=== PATIENT | female | born 1985 | race Caucasian/White ===

== ENCOUNTER 2016-10-10 01:36 | Inpatient (IN) | payer MEDICAID, SELFPAY ==
[2016-10-10] MEDS ORDERED: Sodium Chloride 0.9% 10 ML Syringe FLUSH PRN (02:14)
[2016-10-10] MEDS ORDERED: Nalbuphine 20 MG/1 ML Amp IVPUSH PRN (02:14)
[2016-10-10] MEDS ORDERED: Ondansetron 4 MG Tab.DIS PO PRN (02:14)
[2016-10-10] MEDS ORDERED: Oxytocin/Lactated Ringers 10 UNIT/1,000 ML BAG IV SCH ×2 (02:15→09:00)
[2016-10-10] MEDS: Lactated Ringers 1,000 ML IV SCH ×5 (03:24→10:33)
[2016-10-10] MEDS ORDERED: ePHEDrine 50 MG/ML SDV IVPUSH PRN (03:38)
[2016-10-10] MEDS ORDERED: diphenhydrAMINE 50 MG/ML SDV IVPUSH PRN (03:38)
[2016-10-10] MEDS ORDERED: fentaNYL 100 MCG/2 ML SDV EPIDUR PRN (03:38)
[2016-10-10] MEDS ORDERED: Bupivacaine/fentaNYL/NS 100 ML Bag EPIDUR SCH (03:45)
--- NOTE | 2016-10-10 04:26 | PCM.PREANE ---
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 (past history of migraines) Respiratory: Reports: no symptoms Cardiovascular: Reports: no symptoms GI: Reports: no symptoms Other: Reports: none - PHYSICAL ASSESSMENT O2 Sat by Pulse Oximetry: 98 RR: 18 Vital Signs: Last Vital Signs Temp 36.8 C 10/10/16 02:14 Pulse 91 10/10/16 02:14 Resp 18 10/10/16 02:14 BP 108/59 L 10/10/16 02:14 Pulse Ox 98 10/10/16 02:14 Height: 1.73 m Weight: 75.75 kg ASA Class: 2 Mental Status: alert & oriented x3 Airway Class: Mallampati = 2 Dentition: Reports: normal dentition Thyro-Mental Finger Breadths: 3 Mouth Opening Finger Breadths: 5 ROM/Head Extension: full Respiratory Status: lungs clear to auscultation bilaterally Cardiovascular Status: regular rate & rhythm, normal S1, S2, no murmur, blood pressure WNL - LAB Values: Laboratory Last Values WBC 12.65 K/mm3 (3.98-10.04) H 10/10/16 02:28 RBC 3.86 M/mm3 (3.98-5.22) L 10/10/16 02:28 Hgb 12.0 gm/L (11.2-15.7) 10/10/16 02:28 Hct 35.2 % (34.1-44.9) 10/10/16 02:28 MCV 91.2 fl (79.4-94.8) 10/10/16 02:28 MCH 31.1 pg (25.6-32.2) 10/10/16 02:28 MCHC 34.1 g/dl (32.2-35.5) 10/10/16 02:28 RDW Std Deviation 44.0 fL (36.4-46.3) 10/10/16 02:28 Plt Count 228 K/mm3 (182-369) 10/10/16 02:28 MPV 8.8 fl (9.4-12.3) L 10/10/16 02:28 Neut % (Auto) 78.2 % (34.0-71.1) H 10/10/16 02:28 Lymph % (Auto) 13.8 % (19.3-51.7) L 10/10/16 02:28 Cedar % (Auto) 6.7 % (4.7-12.5) 10/10/16 02:28 Eos % (Auto) 0.6 (0.7-5.8) L 10/10/16 02:28 Baso % (Auto) 0.1 % (0.1-1.2) 10/10/16 02:28 Neut # 9.91 K/mm3 (1.56-6.13) H 10/10/16 02:28 Lymph # 1.74 K/mm3 (1.18-3.74) 10/10/16 02:28 Cedar # 0.85 K/mm3 (0.24-0.36) H 10/10/16 02:28 Eos # 0.07 K/mm3 (0.04-0.36) 10/10/16 02:28 Baso # 0.01 K/mm3 (0.01-0.08) 10/10/16 02:28 Blood Type AB POSITIVE 10/10/16 02:28 Gel Antibody Screen Negative 10/10/16 02:28 - ALLERGIES Allergies/Adverse Reactions: Allergies Allergy/AdvReac Type Severity Reaction Status Date / Time Sulfa (Sulfonamide Allergy Joint Pain Verified 10/02/16 21:13 Antibiotics) - BLOOD Blood Available: Yes Product(s) Available: PRBC - ANESTHESIA PLAN Anesthesia Type Planned: epidural - ACKNOWLEDGEMENTS Pt an appropriate candidate for the planned anesthesia: Yes Alternatives and risks of anesthesia discussed w pt/guardian: Yes Pt/Guardian understands and agree with anesthesia plan: Yes PreAnesthesia Questionnaire Cardiovascular History: Reports: None Other Cardiovascular History: anemic Respiratory History: Reports: None Other Respiratory History: current smoker Gastrointestinal History: Reports: Cholelithiasis Genitourinary History: Reports: UTI, recurrent, Other (see below) Other Genitourinary History: Recurrent UTIs, kidney infections, possible stones - was directed to see urology after delivery per pt. 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 Musculoskeletal Surgical History: Reports: Other (see below) Other Musculoskeletal Surgeries/Procedures:: Left wrist, correction of "frayed tendons" - SUBSTANCE USE Smoking Status *Q: Current Every Day Smoker Tobacco Use Within Last Twelve Months: Cigarettes Second Hand Smoke Exposure: Yes Recreational Drug Use History: No - HOME MEDS Home Medications: Home Meds Pnv95/Iron Fum/Folic Acid [ Caplet] 1 each PO DAILY 03/26/16 [History] Acyclovir [Zovirax] 400 mg PO TID 10/02/16 [History] Ferrous Sulfate [Iron] 325 mg PO DAILY 10/02/16 [History] - CURRENT (IN HOUSE) MEDS Current Meds: Current Medications Diphenhydramine HCl (Benadryl) 25 mg IVPUSH Q6H PRN PRN Reason: pruritis Ephedrine Sulfate (Ephedrine Sulfate) 5 mg IVPUSH ASDIRECTED PRN PRN Reason: Hypotension Fentanyl (Sublimaze) 100 mcg EPIDUR Q3H PRN PRN Reason: Pain Last Admin: 10/10/16 04:19 Dose: 100 mcg Fentanyl/Bupivacaine HCl (Fentanyl/Bupivacaine/Ns 2 Mcg-0.125% 100 Ml) 100 ml EPIDUR ASDIRECTED [facility] Last Admin: 10/10/16 04:20 Dose: 100 ml Lactated Ringer's (Ringers, Lactated) 1,000 mls @ 100 mls/hr IV ASDIRECTED [facility] Last Admin: 10/10/16 03:25 Dose: 100 mls/hr Oxytocin/Lactated Ringer's (Pitocin In Lr 10 Units/1,000 Ml) 10 unit in 1,000 mls @ 500 mls/hr IV TITRATE [facility] PRN Reason: Protocol Nalbuphine HCl (Nubain) 10 mg IVPUSH Q2H PRN PRN Reason: Pain (moderate 4-6) Ondansetron HCl (Zofran Odt) 4 mg PO Q4H PRN PRN Reason: Nausea/Vomiting Sodium Chloride (Saline Flush) 10 ml FLUSH ASDIRECTED PRN PRN Reason: Keep Vein Open
--- NOTE | 2016-10-10 07:18 | PCM.LDHP ---
L&D History of Present Illness - General Date of Service: 10/10/16 Admit Problem/Dx: Patient Status Order with Admit Dx/Problem 10/10/16 02:15 Patient Status [ADT] Routine Patient Status: Refer to Observation Admission Diagnosis/Problem: Reason for Admit: labor Nurse Unit Type: Labor and Delivery Admitting Physician: Garrett Gonzalez Attending Physician: Garrett Gonzalez Admission Diagnosis/Problem Admission Diagnosis/Problem Source of Information: Patient History Limitations: Reports: No limitations - History of Present Illness Introduction:: Third 1-year-old, TALAT of 3 at 37+ weeks gestation, admitted in labor and delivery with contractions. Cervix 5 cm, dilated. Amniotomy performed at 07 level hours, clear fluid admit for labor and delivery. Group B strep negative history of genital herpes, taking Valtrex history of osteitis pubis Timing/Duration: Reports: minutes: Location, : Reports: Abdomen, Lower back Severity: moderate Pain Score: 8 Improves with: Reports: None Worsens with: Reports: None Associated Symptoms: Reports: N - Related Data Allergies/Adverse Reactions: Allergies Allergy/AdvReac Type Severity Reaction Status Date / Time Sulfa (Sulfonamide Allergy Joint Pain Verified 10/02/16 21:13 Antibiotics) Home Medications: Home Meds Pnv95/Iron Fum/Folic Acid [ Caplet] 1 each PO DAILY 03/26/16 [History] Acyclovir [Zovirax] 400 mg PO TID 10/02/16 [History] Ferrous Sulfate [Iron] 325 mg PO DAILY 10/02/16 [History] Past Medical History Cardiovascular History: Reports: None Other Cardiovascular History: anemic Respiratory History: Reports: None Other Respiratory History: current smoker Gastrointestinal History: Reports: Cholelithiasis Genitourinary History: Reports: UTI, recurrent, Other (see below) Other Genitourinary History: Recurrent UTIs, kidney infections, possible stones - was directed to see urology after delivery per pt. 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 Musculoskeletal Surgical History: Reports: Other (see below) Other Musculoskeletal Surgeries/Procedures:: Left wrist, correction of "frayed tendons" Social & Family History - Family History Family Medical History: Noncontributory - Tobacco Use Smoking Status *Q: Current Every Day Smoker Years of Tobacco use: 16 Packs/Tins Daily: 0.5 Used Tobacco, but Quit: No Second Hand Smoke Exposure: Yes - Caffeine Use Caffeine Use: Reports: None - Recreational Drug Use Recreational Drug Use: No H&P Review of Systems - Review of Systems: Review Of Systems: See Below General: Reports: no symptoms HEENT: Reports: no symptoms Pulmonary: Reports: no symptoms Cardiovascular: Reports: no symptoms Gastrointestinal: Reports: No symptoms Genitourinary: Reports: no symptoms Musculoskeletal: Reports: no symptoms Skin: Reports: no symptoms Psychiatric: Reports: no symptoms Neurological: Reports: no symptoms Hematologic/Lymphatic: Reports: no symptoms Immunologic: Reports: no symptoms L&D Exam - Exam Exam: See Below - Vital Signs Vital Signs: Last Vital Signs Temp 98.3 F 10/10/16 02:14 Pulse 91 10/10/16 02:14 Resp 18 10/10/16 04:29 BP 108/59 L 10/10/16 02:14 Pulse Ox 98 10/10/16 04:29 Weight: 167 lb - OB Specific Fundal Height in cm: 37 Contraction Intensity: Mild to Moderate movement: active heart tones: present heart tones per min: 135 Heart Rate (FHR) Variability: Moderate (6-25 bmp) Presentation: Vertex - Ventura Score Ventura Score Cervix Position: Posterior Ventura Score Consistency: Soft Ventura Score Effacement: 51-70% Ventura Score Dilation: > 5 cm Ventura Score Infant's Station: -1 ,0 Ventura Score Total: 9 - Exam General: alert, oriented HEENT: Mucosa moist & pink Neck: supple, trachea midline Lungs: Clear to auscultation, Normal respiratory effort Cardiovascular: regular rate, regular rhythm Abdomen: normal bowel sounds, soft Genitourinary: Normal external exam Extremities: normal inspection Skin: warm, dry, intact Psychiatric: alert, normal affect, normal mood - Patient Data Lab Results last 24 hrs: Laboratory Results - last 24 hr 10/10/16 10/10/16 Range/Units 02:28 02:28 WBC 12.65 H (3.98-10.04) K/mm3 RBC 3.86 L (3.98-5.22) M/mm3 Hgb 12.0 (11.2-15.7) gm/L Hct 35.2 (34.1-44.9) % MCV 91.2 (79.4-94.8) fl MCH 31.1 (25.6-32.2) pg MCHC 34.1 (32.2-35.5) g/dl RDW Std Deviation 44.0 (36.4-46.3) fL Plt Count 228 (182-369) K/mm3 MPV 8.8 L (9.4-12.3) fl Neut % (Auto) 78.2 H (34.0-71.1) % Lymph % (Auto) 13.8 L (19.3-51.7) % Gregg % (Auto) 6.7 (4.7-12.5) % Eos % (Auto) 0.6 L (0.7-5.8) Baso % (Auto) 0.1 (0.1-1.2) % Neut # 9.91 H (1.56-6.13) K/mm3 Lymph # 1.74 (1.18-3.74) K/mm3 Gregg # 0.85 H (0.24-0.36) K/mm3 Eos # 0.07 (0.04-0.36) K/mm3 Baso # 0.01 (0.01-0.08) K/mm3 Blood Type AB POSITIVE Gel Antibody Screen Negative Result Diagrams: 10/10/16 02:28 - Problem List (1) 37 weeks gestation of SNOMED Code(s): 52915439 ICD Code: Z3A.37 - 37 WEEKS GESTATION OF Status: Acute Current Visit: Yes Problem List Initiated/Reviewed/Updated: No Orders Last 24hrs: Active Orders 24 hr Category Date Time Status Patient Status [ADT] Routine ADT 10/10/16 02:15 Active Activity as Tolerated [RC] PFP Care 10/10/16 02:14 Active Communication Order [RC] ASDIRECTED Care 10/10/16 02:14 Active Communication Order [RC] ASDIRECTED Care 10/10/16 03:38 Active Notify Provider [RC] PFP Care 10/10/16 02:14 Active Notify Provider [RC] PRN Care 10/10/16 02:14 Active Peripheral IV Care [RC] . DIRECTED Care 10/10/16 02:15 Active Vital Signs [RC] PER UNIT ROUTINE Care 10/10/16 02:14 Active Clear Liquid Diet [DIET] Diet 10/10/16 Breakfast Active Bupivacaine/fentaNYL/NS [fentaNYL/Bupivacaine/NS 2 MCG- Med 10/10/16 03:45 Active 0.125% 100 ML] 100 ml EPIDUR ASDIRECTED Lactated Ringers [Ringers, Lactated] 1,000 ml Med 10/10/16 02:15 Active IV ASDIRECTED Nalbuphine [Nubain] Med 10/10/16 02:14 Active 10 mg IVPUSH Q2H PRN Ondansetron [Zofran ODT] Med 10/10/16 02:14 Active 4 mg PO Q4H PRN Oxytocin/Lactated Ringers [Pitocin in LR 10 Units/1,000 Med 10/10/16 02:15 Active ML] 10 unit in 1,000 ml IV TITRATE Sodium Chloride 0.9% [Saline Flush] Med 10/10/16 02:14 Active 10 ml FLUSH ASDIRECTED PRN diphenhydrAMINE [Benadryl] Med 10/10/16 03:38 Active 25 mg IVPUSH Q6H PRN ePHEDrine [ePHEDrine Sulfate] Med 10/10/16 03:38 Active 5 mg IVPUSH ASDIRECTED PRN fentaNYL [Sublimaze] Med 10/10/16 03:38 Active 100 mcg EPIDUR Q3H PRN Electronic Heart Tones Ext w TOCO [WOMSER] Oth 10/10/16 02:14 Ordered Routine Electronic Heart Tones Internal [WOMSER] Per Unit Oth 10/10/16 02:14 Ordered Routine Peripheral IV Insertion Adult [OM.PC] Routine Oth 10/10/16 02:14 Ordered Resuscitation Status Routine Resus Stat 10/10/16 02:14 Ordered Medication Orders Diphenhydramine HCl (Benadryl) 25 mg IVPUSH Q6H PRN PRN Reason: pruritis Ephedrine Sulfate (Ephedrine Sulfate) 5 mg IVPUSH ASDIRECTED PRN PRN Reason: Hypotension Fentanyl (Sublimaze) 100 mcg EPIDUR Q3H PRN PRN Reason: Pain Last Admin: 10/10/16 04:19 Dose: 100 mcg Fentanyl/Bupivacaine HCl (Fentanyl/Bupivacaine/Ns 2 Mcg-0.125% 100 Ml) 100 ml EPIDUR ASDIRECTED [facility] Last Admin: 10/10/16 04:20 Dose: 100 ml Lactated Ringer's (Ringers, Lactated) 1,000 mls @ 100 mls/hr IV ASDIRECTED [facility] Last Admin: 10/10/16 06:45 Dose: 100 mls/hr Infusion: 10/10/16 06:45 Dose: 100 mls/hr Admin: 10/10/16 03:25 Dose: 100 mls/hr Infusion: 10/10/16 03:25 Dose: 100 mls/hr Admin: 10/10/16 03:24 Dose: 100 mls/hr Oxytocin/Lactated Ringer's (Pitocin In Lr 10 Units/1,000 Ml) 10 unit in 1,000 mls @ 500 mls/hr IV TITRATE [facility] PRN Reason: Protocol Nalbuphine HCl (Nubain) 10 mg IVPUSH Q2H PRN PRN Reason: Pain (moderate 4-6) Ondansetron HCl (Zofran Odt) 4 mg PO Q4H PRN PRN Reason: Nausea/Vomiting Sodium Chloride (Saline Flush) 10 ml FLUSH ASDIRECTED PRN PRN Reason: Keep Vein Open Assessment/Plan Comment:: Admit for labor and
--- NOTE | 2016-10-10 12:35 | PCM.DEL ---
L & D Note - General Info Date of Service: 10/10/16 Mother's Due Date: 10/22/16 - Delivery Note Labor: spontaneous, augmented by ARM, augmented by oxytocin Delivery Outcome: Livebirth (Female liveborn, Monday at 1219 hours Apgars 8/9. Weight 2770 g/6 pounds, 1.7 ounces, BELÉN, cord around the abdomen) Infant Delivery Mode: Spontaneous Type of Forceps Used: None Presentation: Left Occiput Anterior (BELÉN) Nuchal cord: none (Cord around the abdomen loose, x1) Anesthesia Type: Epidural Amniotic Fluid Description: Clear Episiotomy Type: None Laceration: none Placenta: intact, spontaneous (Intact eccentric cord insertion. Cord around the abdomen. Placenta delivered, at 1223 hours, exam and discarded) Cord: 3 vessels Estimated blood loss: 250 Resuscitation needed: No : suctioned, bulb syringe, stimulated, warmed, blanket used, warmer used Provider: Garrett Gonzalez Score 1 min: 8 Score 5 min: 9 - Patient Data Vitals - most recent: Last Vital Signs Temp 98.3 F 10/10/16 02:14 Pulse 91 10/10/16 02:14 Resp 18 10/10/16 04:29 BP 108/59 L 10/10/16 02:14 Pulse Ox 98 10/10/16 04:29 Weight - most recent: 167 lb Lab Results last 24 hrs: Laboratory Results - last 24 hr 10/10/16 10/10/16 Range/Units 02:28 02:28 WBC 12.65 H (3.98-10.04) K/mm3 RBC 3.86 L (3.98-5.22) M/mm3 Hgb 12.0 (11.2-15.7) gm/L Hct 35.2 (34.1-44.9) % MCV 91.2 (79.4-94.8) fl MCH 31.1 (25.6-32.2) pg MCHC 34.1 (32.2-35.5) g/dl RDW Std Deviation 44.0 (36.4-46.3) fL Plt Count 228 (182-369) K/mm3 MPV 8.8 L (9.4-12.3) fl Neut % (Auto) 78.2 H (34.0-71.1) % Lymph % (Auto) 13.8 L (19.3-51.7) % Leon % (Auto) 6.7 (4.7-12.5) % Eos % (Auto) 0.6 L (0.7-5.8) Baso % (Auto) 0.1 (0.1-1.2) % Neut # 9.91 H (1.56-6.13) K/mm3 Lymph # 1.74 (1.18-3.74) K/mm3 Leon # 0.85 H (0.24-0.36) K/mm3 Eos # 0.07 (0.04-0.36) K/mm3 Baso # 0.01 (0.01-0.08) K/mm3 Blood Type AB POSITIVE Gel Antibody Screen Negative Med Orders - Current: Current Medications Diphenhydramine HCl (Benadryl) 25 mg IVPUSH Q6H PRN PRN Reason: pruritis Ephedrine Sulfate (Ephedrine Sulfate) 5 mg IVPUSH ASDIRECTED PRN PRN Reason: Hypotension Fentanyl (Sublimaze) 100 mcg EPIDUR Q3H PRN PRN Reason: Pain Last Admin: 10/10/16 04:19 Dose: 100 mcg Fentanyl/Bupivacaine HCl (Fentanyl/Bupivacaine/Ns 2 Mcg-0.125% 100 Ml) 100 ml EPIDUR ASDIRECTED [facility] Last Admin: 10/10/16 04:20 Dose: 100 ml Lactated Ringer's (Ringers, Lactated) 1,000 mls @ 100 mls/hr IV ASDIRECTED [facility] Last Admin: 10/10/16 10:33 Dose: 100 mls/hr Oxytocin/Lactated Ringer's (Pitocin In Lr 10 Units/1,000 Ml) 10 unit in 1,000 mls @ 500 mls/hr IV TITRATE [facility] PRN Reason: Protocol Oxytocin/Lactated Ringer's (Pitocin In Lr 10 Units/1,000 Ml) 10 unit in 1,000 mls @ 12 mls/hr IV TITRATE [facility]; 2 MUNITS/MIN PRN Reason: Protocol Last Titration: 10/10/16 10:32 Dose: 6 munits/min, 36 mls/hr Nalbuphine HCl (Nubain) 10 mg IVPUSH Q2H PRN PRN Reason: Pain (moderate 4-6) Ondansetron HCl (Zofran Odt) 4 mg PO Q4H PRN PRN Reason: Nausea/Vomiting Sodium Chloride (Saline Flush) 10 ml FLUSH ASDIRECTED PRN PRN Reason: Keep Vein Open - Problem List & Annotations (1) 37 weeks gestation of SNOMED Code(s): 08727498 Code(s): Z3A.37 - 37 WEEKS GESTATION OF Status: Acute Current Visit: Yes (2) Cord entanglement, delivered SNOMED Code(s): 61821735 Code(s): O69.82X0 - LABOR AND DEL COMP BY OTH CORD ENTANGLE, W/O COMPRSN, UNSP Status: Acute Current Visit: Yes (3) Osteitis pubis SNOMED Code(s): 27457890 Code(s): M86.9 - OSTEOMYELITIS, UNSPECIFIED Status: Acute Current Visit: Yes - Problem List Review Problem List Initiated/Reviewed/Updated: No - My Orders Last 24 Hours: My Active Orders 10/10/16 02:14 Activity as Tolerated [RC] PFP Communication Order [RC] ASDIRECTED Notify Provider [RC] PFP Notify Provider [RC] PRN Vital Signs [RC] PER UNIT ROUTINE Nalbuphine [Nubain] 10 mg IVPUSH Q2H PRN Ondansetron [Zofran ODT] 4 mg PO Q4H PRN Sodium Chloride 0.9% [Saline Flush] 10 ml FLUSH ASDIRECTED PRN Electronic Heart Tones Ext w TOCO [WOMSER] Routine Electronic Heart Tones Internal [WOMSER] Per Unit Routine Peripheral IV Insertion Adult [OM.PC] Routine Resuscitation Status Routine 10/10/16 02:15 Patient Status [ADT] Routine Peripheral IV Care [RC] . DIRECTED Lactated Ringers [Ringers, Lactated] 1,000 ml IV ASDIRECTED Oxytocin/Lactated Ringers [Pitocin in LR 10 Units/1,000 ML] 10 unit in 1,000 ml IV TITRATE 10/10/16 09:00 Oxytocin/Lactated Ringers [Pitocin in LR 10 Units/1,000 ML] 10 unit in 1,000 ml IV TITRATE 10/10/16 Breakfast Clear Liquid Diet [DIET] - Assessment Assessment:: Spontaneous vaginal delivery. See delivery note - Plan Plan:: Admit for labor and
[2016-10-10] MEDS ORDERED: Benzocaine/Menthol 20%-0.5% Spray 56 GM Canister TOP PRN (13:07)
[2016-10-10] MEDS ORDERED: Bupivacaine 0.25% 10 ML SDV ONE (13:07)
[2016-10-10] MEDS ORDERED: Lanolin 100% Cream 7 GM Tube TOP PRN (13:07)
[2016-10-10] MEDS ORDERED: Docusate Sodium 100 MG Cap PO PRN (13:07)
[2016-10-10] MEDS ORDERED: Witch Hazel Medicated Pads 100/Jar TOP PRN (13:07)
[2016-10-10] MEDS ORDERED: Acetaminophen/oxyCODONE 325-5 MG Tab PO PRN (13:07)
[2016-10-10] MEDS ORDERED: Acetaminophen 325 MG Tab PO PRN (13:07)
[2016-10-10] MEDS: Ibuprofen 600 MG Tab PO PRN (14:03)
[2016-10-10] MEDS: Acyclovir 200 MG Cap PO SCH ×2 (15:15→21:07)
[2016-10-11] MEDS: Ibuprofen 600 MG Tab PO PRN ×3 (00:29→09:07)
--- NOTE | 2016-10-11 07:35 | PCM48HPAN ---
Post Anesthesia Note - EVALUATION WITHIN 48HRS OF ANESTHETIC Vital Signs in Normal Range: Yes Patient Participated in Evaluation: Yes Respiratory Function Stable: Yes Airway Patent: Yes Cardiovascular Function Stable: Yes Hydration Status Stable: Yes Pain Control Satisfactory: Yes Nausea and Vomiting Control Satisfactory: Yes Mental Status Recovered: Yes
[2016-10-11] MEDS ORDERED: Pneumococcal Polyvalent-23 Vaccine 0.5 ML SDV IM ONE (08:42)
[2016-10-11] MEDS: Acyclovir 200 MG Cap PO SCH (09:07)
--- NOTE | 2016-10-11 10:20 | PCM.DCSUM1 ---
Discharge Summary - Hospital Course Free Text/Narrative:: [facility], operated by [facility] LIVE L/D Delivery Note Patient Name: MALINI BECKWITH Date of : 83 Patient Status: Inpatient Attending Provider: Garrett Gonzalez Date: 10/10/16 12:29 Initialization Date: 10/10/16 12:29 L & D Note - General Info Date of Service: 10/10/16 Mother's Due Date: 10/22/16 - Delivery Note Labor: spontaneous, augmented by ARM, augmented by oxytocin Delivery Outcome: Livebirth (Female liveborn, Monday at 1219 hours Apgars 8/9. Weight 2770 g/6 pounds, 1.7 ounces, BELÉN, cord around the abdomen) Delivery Mode: Spontaneous Type of Forceps Used: None Presentation: Left Occiput Anterior (BELÉN) Nuchal cord: none (Cord around the abdomen loose, x1) Anesthesia Type: Epidural Amniotic Fluid Description: Clear Episiotomy Type: None Laceration: none Placenta: intact, spontaneous (Intact eccentric cord insertion. Cord around the abdomen. Placenta delivered, at 1223 hours, exam and discarded) Cord: 3 vessels Estimated blood loss: 250 Resuscitation needed: No Patterson: suctioned, bulb syringe, stimulated, warmed, blanket used, warmer used Provider: Garrett Gonzalez Score 1 min: 8 Score 5 min: 9 - Patient Data Vitals - most recent: Last Vital Signs Temp 98.3 F 10/10/16 02:14 Pulse 91 10/10/16 02:14 Resp 18 10/10/16 04:29 BP 108/59 L 10/10/16 02:14 Pulse Ox 98 10/10/16 04:29 Weight - most recent: 167 lb Lab Results last 24 hrs: Laboratory Results - last 24 hr 10/10/16 10/10/16 Range/Units 02:28 02:28 WBC 12.65 H (3.98-10.04) K/mm3 RBC 3.86 L (3.98-5.22) M/mm3 Hgb 12.0 (11.2-15.7) gm/L Hct 35.2 (34.1-44.9) % MCV 91.2 (79.4-94.8) fl MCH 31.1 (25.6-32.2) pg MCHC 34.1 (32.2-35.5) g/dl RDW Std Deviation 44.0 (36.4-46.3) fL Plt Count 228 (182-369) K/mm3 MPV 8.8 L (9.4-12.3) fl Neut % (Auto) 78.2 H (34.0-71.1) % Lymph % (Auto) 13.8 L (19.3-51.7) % [place] % (Auto) 6.7 (4.7-12.5) % Eos % (Auto) 0.6 L (0.7-5.8) Baso % (Auto) 0.1 (0.1-1.2) % Neut # 9.91 H (1.56-6.13) K/mm3 Lymph # 1.74 (1.18-3.74) K/mm3 [place] # 0.85 H (0.24-0.36) K/mm3 Eos # 0.07 (0.04-0.36) K/mm3 Baso # 0.01 (0.01-0.08) K/mm3 Blood Type AB POSITIVE Gel Antibody Screen Negative Med Orders - Current: Current Medications Diphenhydramine HCl (Benadryl) 25 mg IVPUSH Q6H PRN PRN Reason: pruritis Ephedrine Sulfate (Ephedrine Sulfate) 5 mg IVPUSH ASDIRECTED PRN PRN Reason: Hypotension Fentanyl (Sublimaze) 100 mcg EPIDUR Q3H PRN PRN Reason: Pain Last Admin: 10/10/16 04:19 Dose: 100 mcg Fentanyl/Bupivacaine HCl (Fentanyl/Bupivacaine/Ns 2 Mcg-0.125% 100 Ml) 100 ml EPIDUR ASDIRECTED JARVIS Last Admin: 10/10/16 04:20 Dose: 100 ml Lactated Ringer's (Ringers, Lactated) 1,000 mls @ 100 mls/hr IV ASDIRECTED JARVIS Last Admin: 10/10/16 10:33 Dose: 100 mls/hr Oxytocin/Lactated Ringer's (Pitocin In Lr 10 Units/1,000 Ml) 10 unit in 1,000 mls @ 500 mls/hr IV TITRATE JARVIS PRN Reason: Protocol Oxytocin/Lactated Ringer's (Pitocin In Lr 10 Units/1,000 Ml) 10 unit in 1,000 mls @ 12 mls/hr IV TITRATE JARVIS; 2 MUNITS/MIN PRN Reason: Protocol Last Titration: 10/10/16 10:32 Dose: 6 munits/min, 36 mls/hr Nalbuphine HCl (Nubain) 10 mg IVPUSH Q2H PRN PRN Reason: Pain (moderate 4-6) Ondansetron HCl (Zofran Odt) 4 mg PO Q4H PRN PRN Reason: Nausea/Vomiting Sodium Chloride (Saline Flush) 10 ml FLUSH ASDIRECTED PRN PRN Reason: Keep Vein Open - Problem List & Annotations (1) 37 weeks gestation of SNOMED Code(s): 04752406 Code(s): Z3A.37 - 37 WEEKS GESTATION OF Status: Acute Current Visit: Yes (2) Cord entanglement, delivered SNOMED Code(s): 89875023 Code(s): O69.82X0 - LABOR AND DEL COMP BY OT CORD ENTANGLE, W/O COMPRSN, UNSP Status: Acute Current Visit: Yes (3) Osteitis pubis SNOMED Code(s): 82150577 Code(s): M86.9 - OSTEOMYELITIS, UNSPECIFIED Status: Acute Current Visit: Yes - Problem List Review Problem List Initiated/Reviewed/Updated: No - My Orders Last 24 Hours: My Active Orders 10/10/16 02:14 Activity as Tolerated [RC] PFP Communication Order [RC] ASDIRECTED Notify Provider [RC] PFP Notify Provider [RC] PRN Vital Signs [RC] PER UNIT ROUTINE Nalbuphine [Nubain] 10 mg IVPUSH Q2H PRN Ondansetron [Zofran ODT] 4 mg PO Q4H PRN Sodium Chloride 0.9% [Saline Flush] 10 ml FLUSH ASDIRECTED PRN Electronic Heart Tones Ext w TOCO [WOMSER] Routine Electronic Heart Tones Internal [WOMSER] Per Unit Routine Peripheral IV Insertion Adult [OM.PC] Routine Resuscitation Status Routine 10/10/16 02:15 Patient Status [ADT] Routine Peripheral IV Care [RC] . DIRECTED Lactated Ringers [Ringers, Lactated] 1,000 ml IV ASDIRECTED Oxytocin/Lactated Ringers [Pitocin in LR 10 Units/1,000 ML] 10 unit in 1,000 ml IV TITRATE 10/10/16 09:00 Oxytocin/Lactated Ringers [Pitocin in LR 10 Units/1,000 ML] 10 unit in 1,000 ml IV TITRATE 10/10/16 Breakfast Clear Liquid Diet [DIET] - Assessment Assessment:: Spontaneous vaginal delivery. See delivery note - Plan Plan:: Admit for labor and HPI Initial Comments: [facility], operated by [facility] LIVE L/D Delivery Note Patient Name: MALINI BECKWITH Date of : 83 Patient Status: Inpatient Attending Provider: Garrett Gonzalez Date: 10/10/16 12:29 Initialization Date: 10/10/16 12:29 L & D Note - General Info Date of Service: 10/10/16 Mother's Due Date: 10/22/16 - Delivery Note Labor: spontaneous, augmented by ARM, augmented by oxytocin Delivery Outcome: Livebirth (Female liveborn, Monday at 1219 hours Apgars 8/9. Weight 2770 g/6 pounds, 1.7 ounces, BELÉN, cord around the abdomen) Infant Delivery Mode: Spontaneous Type of Forceps Used: None Presentation: Left Occiput Anterior (BELÉN) Nuchal cord: none (Cord around the abdomen loose, x1) Anesthesia Type: Epidural Amniotic Fluid Description: Clear Episiotomy Type: None Laceration: none Placenta: intact, spontaneous (Intact eccentric cord insertion. Cord around the abdomen. Placenta delivered, at 1223 hours, exam and discarded) Cord: 3 vessels Estimated blood loss: 250 Resuscitation needed: No : suctioned, bulb syringe, stimulated, warmed, blanket used, warmer used Provider: Garrett Gonzalez Score 1 min: 8 Score 5 min: 9 - Patient Data Vitals - most recent: Last Vital Signs Temp 98.3 F 10/10/16 02:14 Pulse 91 10/10/16 02:14 Resp 18 10/10/16 04:29 BP 108/59 L 10/10/16 02:14 Pulse Ox 98 10/10/16 04:29 Weight - most recent: 167 lb Lab Results last 24 hrs: Laboratory Results - last 24 hr 10/10/16 10/10/16 Range/Units 02:28 02:28 WBC 12.65 H (3.98-10.04) K/mm3 RBC 3.86 L (3.98-5.22) M/mm3 Hgb 12.0 (11.2-15.7) gm/L Hct 35.2 (34.1-44.9) % MCV 91.2 (79.4-94.8) fl MCH 31.1 (25.6-32.2) pg MCHC 34.1 (32.2-35.5) g/dl RDW Std Deviation 44.0 (36.4-46.3) fL Plt Count 228 (182-369) K/mm3 MPV 8.8 L (9.4-12.3) fl Neut % (Auto) 78.2 H (34.0-71.1) % Lymph % (Auto) 13.8 L (19.3-51.7) % [place] % (Auto) 6.7 (4.7-12.5) % Eos % (Auto) 0.6 L (0.7-5.8) Baso % (Auto) 0.1 (0.1-1.2) % Neut # 9.91 H (1.56-6.13) K/mm3 Lymph # 1.74 (1.18-3.74) K/mm3 [place] # 0.85 H (0.24-0.36) K/mm3 Eos # 0.07 (0.04-0.36) K/mm3 Baso # 0.01 (0.01-0.08) K/mm3 Blood Type AB POSITIVE Gel Antibody Screen Negative Med Orders - Current: Current Medications Diphenhydramine HCl (Benadryl) 25 mg IVPUSH Q6H PRN PRN Reason: pruritis Ephedrine Sulfate (Ephedrine Sulfate) 5 mg IVPUSH ASDIRECTED PRN PRN Reason: Hypotension Fentanyl (Sublimaze) 100 mcg EPIDUR Q3H PRN PRN Reason: Pain Last Admin: 10/10/16 04:19 Dose: 100 mcg Fentanyl/Bupivacaine HCl (Fentanyl/Bupivacaine/Ns 2 Mcg-0.125% 100 Ml) 100 ml EPIDUR ASDIRECTED JARVIS Last Admin: 10/10/16 04:20 Dose: 100 ml Lactated Ringer's (Ringers, Lactated) 1,000 mls @ 100 mls/hr IV ASDIRECTED JARVIS Last Admin: 10/10/16 10:33 Dose: 100 mls/hr Oxytocin/Lactated Ringer's (Pitocin In Lr 10 Units/1,000 Ml) 10 unit in 1,000 mls @ 500 mls/hr IV TITRATE JARVIS PRN Reason: Protocol Oxytocin/Lactated Ringer's (Pitocin In Lr 10 Units/1,000 Ml) 10 unit in 1,000 mls @ 12 mls/hr IV TITRATE JARVIS; 2 MUNITS/MIN PRN Reason: Protocol Last Titration: 10/10/16 10:32 Dose: 6 munits/min, 36 mls/hr Nalbuphine HCl (Nubain) 10 mg IVPUSH Q2H PRN PRN Reason: Pain (moderate 4-6) Ondansetron HCl (Zofran Odt) 4 mg PO Q4H PRN PRN Reason: Nausea/Vomiting Sodium Chloride (Saline Flush) 10 ml FLUSH ASDIRECTED PRN PRN Reason: Keep Vein Open - Problem List & Annotations (1) 37 weeks gestation of SNOMED Code(s): 33743620 Code(s): Z3A.37 - 37 WEEKS GESTATION OF Status: Acute Current Visit: Yes (2) Cord entanglement, delivered SNOMED Code(s): 68757937 Code(s): O69.82X0 - LABOR AND DEL COMP BY OTH CORD ENTANGLE, W/O COMPRSN, UNSP Status: Acute Current Visit: Yes (3) Osteitis pubis SNOMED Code(s): 07827811 Code(s): M86.9 - OSTEOMYELITIS, UNSPECIFIED Status: Acute Current Visit: Yes - Problem List Review Problem List Initiated/Reviewed/Updated: No - My Orders Last 24 Hours: My Active Orders 10/10/16 02:14 Activity as Tolerated [RC] PFP Communication Order [RC] ASDIRECTED Notify Provider [RC] PFP Notify Provider [RC] PRN Vital Signs [RC] PER UNIT ROUTINE Nalbuphine [Nubain] 10 mg IVPUSH Q2H PRN Ondansetron [Zofran ODT] 4 mg PO Q4H PRN Sodium Chloride 0.9% [Saline Flush] 10 ml FLUSH ASDIRECTED PRN Electronic Heart Tones Ext w TOCO [WOMSER] Routine Electronic Heart Tones Internal [WOMSER] Per Unit Routine Peripheral IV Insertion Adult [OM.PC] Routine Resuscitation Status Routine 10/10/16 02:15 Patient Status [ADT] Routine Peripheral IV Care [RC] . DIRECTED Lactated Ringers [Ringers, Lactated] 1,000 ml IV ASDIRECTED Oxytocin/Lactated Ringers [Pitocin in LR 10 Units/1,000 ML] 10 unit in 1,000 ml IV TITRATE 10/10/16 09:00 Oxytocin/Lactated Ringers [Pitocin in LR 10 Units/1,000 ML] 10 unit in 1,000 ml IV TITRATE 10/10/16 Breakfast Clear Liquid Diet [DIET] - Assessment Assessment:: Spontaneous vaginal delivery. See delivery note - Plan Plan:: Admit for labor and Brief History: [facility] operated [facility] LIVE . L/D Delivery Note. [facility]: [id number]. Date of : Patient Status: Inpatient. Attending Provider: Garrett Gonzalez Number: [id number]. Date: 10/10/16 12:29Initialization Date: 10/10/16 12:29. L & D Note. - General Info. Date of Service: 10/10/16. Mother's Due Date: 10/22/16. - Delivery Note. Labor: spontaneous, augmented by ARM, augmented by oxytocin. Delivery Outcome: Livebirth (Female liveborn, Monday at 1219 hours Apgars 8/9. Weight 2770 g/6 pounds, 1.7 ounces, BELÉN, cord around the abdomen). Infant Delivery Mode: Spontaneous. Type of Forceps Used: None. Presentation: Left Occiput Anterior (BELÉN). Nuchal cord: none (Cord around the abdomen loose, x1). Anesthesia Type: Epidural. Amniotic Fluid Description: Clear. Episiotomy Type: None. Laceration: none. Placenta: intact , spontaneous (Intact eccentric cord insertion. Cord around the abdomen. Placenta delivered, at 1223 hours, exam and discarded). Cord: 3 vessels. Estimated blood loss: 250. Resuscitation needed: No. Patterson: suctioned, bulb syringe, stimulated, warmed, blanket used, warmer used. Provider: Garrett Gonzalez. Score 1 min: 8. Score 5 min : 9. - Patient Data. Vitals - most recent: Last Vital Signs. Temp 98.3 F 02:14. Pulse 91 10/10/16 02:14. Resp 18 10/10/16 04:29. BP 108/59 L 10/10/16 02:14. Pulse Ox 98 10/10/16 04:29. Weight - most recent: 167 lb. Lab Results last 24 hrs: Laboratory Results - last 24 hr. 10/10/1702Range/Units. 02:2802:28. WBC 12.65 H (3.98-10.04) K/mm3. RBC 3.86 L (3.98- 5.22) M/mm3. Hgb 12.0 (11.2-15.7) gm/L. Hct 35.2 (34.1-44.9) %. MCV 91.2 ( 79.4-94.8) fl. MCH 31.1 (25.6-32.2) pg. MCHC 34.1 (32.2-35.5) g/dl. RDW Std Deviation 44.0 (36.4-46.3) fL. Plt Count 228 (182-369) K/mm3. MPV 8.8 L (9.4-12.3) fl. Neut % (Auto) 78.2 H (34.0-71.1) %. Lymph % (Auto) 13.8 L ( 19.3-51.7) %. [place] % (Auto) 6.7 (4.7-12.5) %. Eos % (Auto) 0.6 L (0.7-5.8). Baso % (Auto) 0.1 (0.1-1.2) %. Neut # 9.91 H (1.56-6.13) K/mm3. Lymph # 1.74 (1.18-3.74) K/mm3. [place] # 0.85 H (0.24-0.36) K/mm3. Eos # 0.07 (0.04- 0.36) K/mm3. Baso # 0.01 (0.01-0.08) K/mm3. Blood Type AB POSITIVE. Gel Antibody Screen Negative. Med Orders - Current: Current Medications. Diphenhydramine HCl (Benadryl) 25 mg IVPUSH Q6H PRN. PRN Reason: pruritis. Ephedrine Sulfate (Ephedrine Sulfate) 5 mg IVPUSH ASDIRECTED PRN. PRN Reason: Hypotension. Fentanyl (Sublimaze) 100 mcg EPIDUR Q3H PRN. PRN Reason: Pain. Last Admin: 10/10/16 04:19 Dose: 100 mcg. Fentanyl/Bupivacaine HCl (Fentanyl/ Bupivacaine/Ns 2 Mcg-0.125% 100 Ml) 100 ml EPIDUR ASDIRECTED JARVIS. Last Admin: 10/10/16 04:20 Dose: 100 ml. Lactated Ringer's (Ringers, Lactated) 1,000 mls @ 100 mls/hr IV ASDIRECTED JARVIS. Last Admin: 10/10/16 10:33 Dose: 100 mls/hr. Oxytocin/Lactated Ringer's (Pitocin In Lr 10 Units/1,000 Ml) 10 unit in 1,000 mls @ 500 mls/hr IV TITRATE JARVIS. PRN Reason: Protocol. Oxytocin/Lactated Ringer's (Pitocin In Lr 10 Units/1,000 Ml) 10 unit in 1,000 mls @ 12 mls/hr IV TITRATE JARVIS; 2 MUNITS/MIN. PRN Reason: Protocol. Last Titration: 10/10/16 10: 32 Dose: 6 munits/min, 36 mls/hr. Nalbuphine HCl (Nubain) 10 mg IVPUSH Q2H PRN. PRN Reason: Pain (moderate 4-6). Ondansetron HCl (Zofran Odt) 4 mg PO Q4H PRN. PRN Reason: Nausea/Vomiting. Sodium Chloride (Saline Flush) 10 ml FLUSH ASDIRECTED PRN. PRN Reason: Keep Vein Open. - Problem List & Annotations. (1) 37 weeks gestation of . SNOMED Code(s): 25573273. Code(s): Z3A.37 - 37 WEEKS GESTATION OF Status: Acute Current Visit: Yes. (2) Cord entanglement, delivered. SNOMED Code(s): 68280931. Code( s): O69.82X0 - LABOR AND DEL COMP BY OTH CORD ENTANGLE, W/O COMPRSN, UNSP Status: Acute Current Visit: Yes. (3) Osteitis pubis. SNOMED Code(s): 07538008. Code(s): M86.9 - OSTEOMYELITIS, UNSPECIFIED Status: Acute Current Visit: Yes. - Problem List Review. Problem List Initiated/Reviewed/ Updated: No. - My Orders. Last 24 Hours: My Active Orders. 10/10/16 02:14. Activity as Tolerated [RC] PFP. Communication Order [RC] ASDIRECTED. Notify Provider [RC] PFP. Notify Provider [RC] PRN. Vital Signs [RC] PER UNIT ROUTINE. Nalbuphine [Nubain] 10 mg IVPUSH Q2H PRN. Ondansetron [Zofran ODT] 4 mg PO Q4H PRN. Sodium Chloride 0.9% [Saline Flush] 10 ml FLUSH ASDIRECTED PRN. Electronic Heart Tones Ext w TOCO [WOMSER] Routine. Electronic Heart Tones Internal [WOMSER] Per Unit Routine. Peripheral IV Insertion Adult [OM.PC] Routine. Resuscitation Status Routine. 10/10/16 02: 15. Patient Status [ADT] Routine. Peripheral IV Care [RC] . DIRECTED. Lactated Ringers [Ringers, Lactated] 1,000 ml IV ASDIRECTED. Oxytocin/Lactated Ringers [Pitocin in LR 10 Units/1,000 ML] 10 unit in 1,000 ml IV TITRATE. 10/10 09:00. Oxytocin/Lactated Ringers [Pitocin in LR 10 Units/1,000 ML] 10 unit in 1,000 ml IV TITRATE. 10/10/16 Breakfast. Clear Liquid Diet [DIET]. - Assessment. Assessment:: Spontaneous vaginal delivery. See delivery note. - Plan. Plan:: Admit for labor and - Discharge Data Discharge Date: 10/11/16 Discharge Disposition: Home, Self-Care 01 Condition: Good - Discharge Diagnosis/Problem(s) (1) 37 weeks gestation of SNOMED Code(s): 25424774 ICD Code: Z3A.37 - 37 WEEKS GESTATION OF Status: Acute Current Visit: Yes (2) Cord entanglement, delivered SNOMED Code(s): 34084506 ICD Code: O69.82X0 - LABOR AND DEL COMP BY OTH CORD ENTANGLE, W/O COMPRSN, UNSP Status: Acute Current Visit: Yes (3) Osteitis pubis SNOMED Code(s): 85054561 ICD Code: M86.9 - OSTEOMYELITIS, UNSPECIFIED Status: Acute Current Visit : Yes - Patient Summary/Data Consults: none Planned Operative Procedure(s) after DC: none Hospital Course: uneventful - Patient Instructions Diet: Heart Healthy Diet Driving: Do Not Drive (x48 hrs) Showering/Bathing: May Shower Notify Provider of: Fever, Increased Pain, Swelling and Redness, Drainage, Nausea and/or Vomiting - Discharge Plan Home Medications: Home Meds Pnv95/Iron Fum/Folic Acid [ Caplet] 1 each PO DAILY 03/26/16 [History] Acyclovir [Zovirax] 400 mg PO TID 10/02/16 [History] Ferrous Sulfate [Iron] 325 mg PO DAILY 10/02/16 [History] oxyCODONE HCl/Acetaminophen [Percocet 5-325 mg Tablet] 1 each PO ASDIRECTED PRN 10/10/16 [History] Acetaminophen [Tylenol] 650 mg PO Q4H PRN #0 tablet 10/11/16 [Rx] Docusate Sodium [Colace] 100 mg PO BID PRN #0 cap 10/11/16 [Rx] Ibuprofen [IJD: Ibuprofen] 600 mg PO Q6H PRN #0 tablet 10/11/16 [Rx] Witch Cassandra [Tucks] 1 pad TOP ASDIRECTED PRN #0 pad 10/11/16 [Rx] Patient Handouts: Smoking Cessation, Tips for Success, [id number], Smoking Hazards - Discharge Summary/Plan Comment DC Time >30 min.: No - Patient Data Vitals - Most Recent: Last Vital Signs Temp 98.4 F 10/11/16 04:08 Pulse 56 L 10/11/16 04:08 Resp 17 10/11/16 04:08 BP 93/58 L 10/11/16 04:08 Pulse Ox 96 03/14/17 04:08 Weight - Most Recent: 167 lb Lab Results - Last 24 hrs: Laboratory Results - last 24 hr 10/11/16 Range/Units 05:37 WBC 8.70 (3.98-10.04) K/mm3 RBC 3.32 L (3.98-5.22) M/mm3 Hgb 10.3 L (11.2-15.7) gm/L Hct 30.9 L (34.1-44.9) % MCV 93.1 (79.4-94.8) fl MCH 31.0 (25.6-32.2) pg MCHC 33.3 (32.2-35.5) g/dl RDW Std Deviation 45.3 (36.4-46.3) fL Plt Count 167 L (182-369) K/mm3 MPV 9.3 L (9.4-12.3) fl Med Orders - Current: Current Medications Acetaminophen (Tylenol) 650 mg PO Q4H PRN PRN Reason: mild pain or fever Acyclovir (Zovirax) 400 mg PO TID JARVIS Last Admin: 10/11/16 09:07 Dose: 400 mg Benzocaine/Menthol (Dermoplast Pain Relief [place]) 0 gm TOP ASDIRECTED PRN PRN Reason: Perineal Comfort Measure Last Admin: 10/10/16 14:04 Dose: 1 can Docusate Sodium (Colace) 100 mg PO BID PRN PRN Reason: Constipation Emollient Ointment (Lansinoh Hpa) 0 gm TOP ASDIRECTED PRN PRN Reason: Sore Nipples Ibuprofen (Motrin) 600 mg PO Q4H PRN PRN Reason: Mild pain or fever Last Admin: 10/11/16 09:07 Dose: 600 mg Oxycodone/Acetaminophen (Percocet 325-5 Mg) 2 tab PO Q4H PRN PRN Reason: Pain (moderate 4-6) Witch Cassandra (Tucks) 1 pad TOP ASDIRECTED PRN PRN Reason: Hemorrhoid pain Last Admin: 10/10/16 14:04 Dose: 1 can Discontinued Medications Diphenhydramine HCl (Benadryl) 25 mg IVPUSH Q6H PRN PRN Reason: pruritis Ephedrine Sulfate (Ephedrine Sulfate) 5 mg IVPUSH ASDIRECTED PRN PRN Reason: Hypotension Fentanyl (Sublimaze) 100 mcg EPIDUR Q3H PRN PRN Reason: Pain Last Admin: 10/10/16 04:19 Dose: 100 mcg Fentanyl/Bupivacaine HCl (Fentanyl/Bupivacaine/Ns 2 Mcg-0.125% 100 Ml) 100 ml EPIDUR ASDIRECTED JARVIS Last Admin: 10/10/16 04:20 Dose: 100 ml Lactated Ringer's (Ringers, Lactated) 1,000 mls @ 100 mls/hr IV ASDIRECTED JARVIS Last Admin: 10/10/16 10:33 Dose: 100 mls/hr Oxytocin/Lactated Ringer's (Pitocin In Lr 10 Units/1,000 Ml) 10 unit in 1,000 mls @ 500 mls/hr IV TITRATE JARVIS PRN Reason: Protocol Oxytocin/Lactated Ringer's (Pitocin In Lr 10 Units/1,000 Ml) 10 unit in 1,000 mls @ 12 mls/hr IV TITRATE JARVIS; 2 MUNITS/MIN PRN Reason: Protocol Last Titration: 10/10/16 10:32 Dose: 6 munits/min, 36 mls/hr Nalbuphine HCl (Nubain) 10 mg IVPUSH Q2H PRN PRN Reason: Pain (moderate 4-6) Ondansetron HCl (Zofran Odt) 4 mg PO Q4H PRN PRN Reason: Nausea/Vomiting Pneumococcal Polyvalent Vaccine (Pneumovax 23) 0.5 ml IM .ONCE ONE Stop: 10/11/16 08:43 Last Admin: 10/11/16 09:05 Dose: 0.5 ml Sodium Chloride (Saline Flush) 10 ml FLUSH ASDIRECTED PRN PRN Reason: Keep Vein Open *Q Meaningful Use (DIS) - VTE *Q VTE Criteria *Q: - Stroke *Q Stroke Criteria *Q: - AMI *Q AMI Criteria *Q:
[2016-10-11 14:45] VITALS: BP 96/56
== END 2016-10-11 13:40 | disposition home or self-care (01) | DRG 775 ==
LOC: JD.OBCHECK 01:36 → JD.OB 01:38 → JD.OBCHECK 02:15 → JD.OB 02:15 → OBSVTOIN 12:36 → JD.OB 12:36
PROVIDERS: ADMIT Obstetrics & Gynecology; ATTEND Obstetrics & Gynecology
PROC: 10E0XZZ Delivery of Products of Conception, External Approach (ICD-10-PCS; principal; 2016-10-10)
PROC: 10907ZC Drainage of Amniotic Fluid, Therapeutic from Products of Conception, Via Natural or Artificial Opening (ICD-10-PCS; 2016-10-10)
PROC: 00HU33Z Insertion of Infusion Device into Spinal Canal, Percutaneous Approach (ICD-10-PCS; 2016-10-10)
PROC: 3E0R3CZ (ICD-10-PCS; 2016-10-10)
PROC: 3E0234Z Introduction of Serum, Toxoid and Vaccine into Muscle, Percutaneous Approach (ICD-10-PCS; 2016-10-10)
DX: O75.89 Other specified complications of labor and delivery (principal); M86.8X8 Other osteomyelitis, other site; O69.81X0 Labor and delivery complicated by cord around neck, without compression, not applicable or unspecified; Z3A.37 37 weeks gestation of pregnancy; Z37.0 Single live birth; Z23 Encounter for immunization
CPT/HCPCS: 36415; 85025; 85027; 86850; 86900; 86901; 90732; A9270-GY; J2590; J3010; J7120

== ENCOUNTER 2017-08-01 03:27 | Emergency (ER) | payer MEDICAID ==
[2017-08-01 03:39] VITALS: BP 111/76
--- NOTE | 2017-08-01 04:14 | EDM.PDOC ---
ED HPI GENERAL MEDICAL PROBLEM - General Chief Complaint: Back Pain or Injury Time Seen by Provider: 08/01/17 03:29 Source of Information: Reports: Patient History Limitations: Reports: No Limitations - History of Present Illness INITIAL COMMENTS - FREE TEXT/NARRATIVE: The patient was very guarded when I entered the room, stating that a previous doctor at this hospital botched an evaluation. 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 She states that her right lower extremity is minimally affected, as well. She denies having any tingling or numbness. She denies having incontinence of bowel or bladder. She states that she has had similar symptoms several times in the past, since 16 or 17 years of age. She states that a MRI at that time demonstrated bone spurs, degenerative disc disease, bulging disks, etc. She states that she has never undergone lumbar surgery or local spinal injections. Review of prior medical records finds the reading of an MRI of the lumbar spine obtained 03/16/2017 as: 1. Degenerative dehydration change within the L5-S1 disc. 2. MRI study of the lumbar spine is otherwise unremarkable. The patient states that following her MRI, she followed up with Dr. Bonilla, who reviewed the MRI and told her that, contrary to what Dr. Ramos reported, that the MRI showed complete destruction of her L5/S1 disc, with disc bulging and nerve compression. She then showed me an image of her MRI on her phone, that she purports to demonstrate the disc destruction. The patient states that Dr. Bonilla prescribed a 5 or 6 day course of a Medrol Dosepak, that she finished on 07/22/2017, along with oral Valium. She states that the steroids did absolutely nothing. She states that she has an appointment to follow-up with Dr. Bonilla this coming 08/07/2017, to schedule surgery. The patient was given 1 mg IV Dilaudid and 1 mg IV Ativan per EMS en route to the ED. The patient's PCP is Dr. Wood. 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 History: Reports: , Spontaneous Musculoskeletal History: Reports: Back Pain, Chronic Psychiatric History: Reports: Anxiety Hematologic History: Reports: Anemia, Iron Deficiency - Past Surgical History GI Surgical History: Reports: Cholecystectomy Female Surgical History: Reports: Other (See Below) (Exploratory laparoscopy for endometriosis (none found)) Social & Family History - Family History Family Medical History: Noncontributory - Tobacco Use Smoking Status *Q: Former Smoker Years of Tobacco use: 16 Packs/Tins Daily: 0.5 Second Hand Smoke Exposure: Yes - Caffeine Use Caffeine Use: Reports: None - Recreational Drug Use Recreational Drug Use: No - Living Situation & Occupation Occupation: Employed ([employer]) ED ROS GENERAL - Review of Systems Review Of Systems: See Below Constitutional: Reports: No Symptoms HEENT: Reports: No Symptoms Respiratory: Reports: No Symptoms Cardiovascular: Reports: No Symptoms Endocrine: Reports: No Symptoms GI/Abdominal: Reports: No Symptoms : Reports: No Symptoms Musculoskeletal: Reports: No Symptoms Skin: Reports: No Symptoms Neurological: Reports: No Symptoms Psychiatric: Reports: No Symptoms Hematologic/Lymphatic: Reports: No Symptoms Immunologic: Reports: No Symptoms ED EXAM, NEURO - Physical Exam Exam: See Below Exam Limited By: No Limitations General Appearance: Alert, WD/WN, Other (The patient indicates that she is in severe pain) Ears: Normal External Exam, Hearing Grossly Normal Nose: Normal Inspection, No Blood Throat/Mouth: Normal Inspection, Normal Lips, Normal Voice, No Airway Compromise Head Exam: Atraumatic, Normocephalic Neck: Normal Inspection, Full Range of Motion Respiratory/Chest: No Respiratory Distress, Lungs Clear, Normal Breath Sounds, No Accessory Muscle Use Cardiovascular: Normal Peripheral Pulses, Regular Rate, Rhythm, No Gallop, No JVD, No Murmur, No Rub GI/Abdominal: Normal Bowel Sounds, Soft, Non-Tender, No Organomegaly, No Distention, No Abnormal Bruit, No Mass (Female) Exam: Deferred Rectal (Female) Exam: Deferred Neurological: Alert, Other (The patient reports normal sensation to the bilateral lower extremities. She has 1/6 strength to both flexion and extension at the knee, and 1/6 strength to both flexion and extension at the hip. 1/6 strength dorsiflexion and plantar flexion of both ankles. Vascular status of bilateral lower extremities is intact, with strong distal pulses.) Back Exam: Other (No visible abnormalities to the lower back, such as swelling, erythema, ecchymosis, or abrasion. The patient reports tenderness to palpation over the sacrum. She denies tenderness to palpation over the lumbar spinous processes.) Extremities: Normal Inspection, Non-Tender, No Pedal Edema, Normal Capillary Refill Psychiatric: Other (Guarded) Skin Exam: Warm, Dry, Intact, Normal Color, No Rash Course - Vital Signs Last Recorded V/S: Last Vital Signs Temp 35.8 C 08/01/17 03:35 Pulse 103 H 08/01/17 03:35 Resp 16 08/01/17 03:35 BP 111/76 08/01/17 03:35 Pulse Ox 97 08/01/17 03:35 - Re-Assessments/Exams Free Text/Narrative Re-Assessment/Exam: 08/01/17 04:08 Clinically, I strongly suspect that the patient is not only malingering, but that she is drug-seeking. Her physical examination and symptoms make no neurologic or anatomic sense whatsoever. For example, she is claiming that she has severe lower back and lower extremity pain, but no tingling or numbness. At the same time, her bilateral lower extremities are equally extremely weak, approximately 1/6 strength, and yet she was able to walk to the bathroom with the assistance of a nurse. Case discussed with Dr. Felipe, on-call for Dr. Bonilla, at 04:05. He feels that the patient is most likely malingering, but just in case the patient has a [id number]- [id number] unusual presentation of a legitimate disorder, he recommends that we transfer the patient to [facility], where she can be seen by a Neurosurgeon. 08/01/17 04:13 The above was discussed with the patient, who is amenable to being transferred, however, she also demanded that she get additional pain medication. I explained that we do not want to mask or in any way alter her neurologic exam for the Neurosurgeon, and therefore we will need to hold off on any pain medication at this time. She is not happy about that. 08/01/17 04:[address] Randall, Emergency Physician at [facility], at 04:25, who accepts the patient for transfer. Departure - Departure Time of Disposition: 04:29 Disposition: DC/Tfer to Acute Hospital 02 Condition: Good Clinical Impression: Weakness of both lower extremities - Discharge Information
== END 2017-08-01 05:20 ==
LOC: JD.ED 03:27
DX: R29.898 Other symptoms and signs involving the musculoskeletal system (principal); M79.605 Pain in left leg; Z88.2 Allergy status to sulfonamides; Z87.891 Personal history of nicotine dependence
CPT/HCPCS: 99283; 99285

== ENCOUNTER 2018-04-27 15:55 | Emergency (ER) | payer MEDICAID ==
[2018-04-27 16:04] VITALS: BP 135/75
--- NOTE | 2018-04-27 16:28 | EDM.PDOC ---
ED HPI GENERAL MEDICAL PROBLEM - General Chief Complaint: Back Pain or Injury Stated Complaint: MEDICATION REFILL Time Seen by Provider: 04/27/18 16:28 Source of Information: Reports: Patient History Limitations: Reports: No Limitations - History of Present Illness INITIAL COMMENTS - FREE TEXT/NARRATIVE: Today we have a 32yoF who had back surgery with Dr. Catalan on 04-12-18. This was a fusion of L5 as reported by the patient. She states that she had an appointment on 04-24 with his nurse Kaycee Naranjo, at this time she did not request a refill, and would call towards the end of the week for a refill if needed. On 04-26 she was having increased pain, so she called for a refill and apparently the script did not get sent, she could not reach her normal PCP Back Pain Score (Numeric/FACES): 6 - Related Data Allergies Allergy/AdvReac Type Severity Reaction Status Date / Time Sulfa (Sulfonamide Allergy Joint Pain Verified 04/27/18 16:04 Antibiotics) Home Meds: Home Meds medroxyPROGESTERone Acetate [Depo-Provera] 150 mg IM ASDIRECTED 02/17/18 [ History] Acetaminophen/oxyCODONE [Percocet 325-5 MG] 2 tab PO Q4H PRN 04/27/18 [History] Past Medical History Cardiovascular History: Reports: None Other Cardiovascular History: anemic Respiratory History: Reports: None Other Respiratory History: current smoker Gastrointestinal History: Reports: Cholelithiasis Genitourinary History: Reports: UTI, Recurrent, Other (See Below) Other Genitourinary History: Recurrent UTIs, kidney infections, possible stones - was directed to see urology after delivery per pt. 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 Musculoskeletal History: Reports: Back Pain, Chronic Other Musculoskeletal History: L5 degenerative disk Psychiatric History: Reports: Anxiety Other Psychiatric History: increased stress Hematologic History: Reports: Anemia, Iron Deficiency - Past Surgical History Head Surgeries/Procedures: Reports: None GI Surgical History: Reports: Cholecystectomy Female Surgical History: Reports: Other (See Below) Musculoskeletal Surgical History: Reports: Other (See Below) Other Musculoskeletal Surgeries/Procedures:: spinal fusion Social & Family History - Family History Family Medical History: Noncontributory - Tobacco Use Smoking Status *Q: Never Smoker - Caffeine Use Caffeine Use: Reports: Coffee - Recreational Drug Use Recreational Drug Use: No - Living Situation & Occupation 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 No recent fills on an DMP. [facility] 90 quantity Percocet filled on 04/18/2018. Attempted to call patient's neurosurgeon and while awaiting return phone call, [id number] minutes, patient decided she did not want to wait and left AMA. Patient had discussed situation with JN Canas who is currently in orientation. Left AMA before being seen by billing provider. 04/27/18 17:13 04/27/18 17:15 Departure - Departure Time of Disposition: 17:14 Disposition: Home, Self-Care 01 Condition: Good Clinical Impression: Status post lumbar surgery - Discharge Information Referrals: Lorena Mcleod PORTFOLIO STRATEGIST [Primary Care Provider] - Forms: ED Department Discharge
== END 2018-04-27 17:20 | disposition home or self-care (01) ==
LOC: JD.ED 15:55
DX: Z53.20 Procedure and treatment not carried out because of patient's decision for unspecified reasons (principal)
CPT/HCPCS: 99282

== ENCOUNTER 2018-08-04 02:43 | Emergency (ER) | payer MEDICAID ==
[2018-08-04] MEDS ORDERED: Sodium Chloride 0.9% 1,000 ML IV SCH (03:00)
--- NOTE | 2018-08-04 03:24 | EDM.PDOCBH ---
<Duong Joseph - Last Filed: 08/04/18 20:05> ED HPI GENERAL MEDICAL PROBLEM - General Chief Complaint: Drug or Alcohol Abuse Stated Complaint: [facility] Time Seen by Provider: 08/04/18 02:46 - Related Data Allergies Allergy/AdvReac Type Severity Reaction Status Date / Time Sulfa (Sulfonamide Allergy Joint Pain Verified 08/04/18 02:57 Antibiotics) COURSE, BEHAVIORAL HEALTH COMP - Course Vital Signs: Last Vital Signs Temp 36.6 C 08/04/18 02:48 Pulse 93 08/04/18 12:39 Resp 16 08/04/18 12:39 BP 100/73 08/04/18 12:39 Pulse Ox 100 08/04/18 12:39 Orders, Labs, Meds: Active Orders 24 hr Category Date Time Status EKG Documentation Completion [RC] STAT Care 08/04/18 02:58 Active Laboratory Tests 08/04/18 08/04/18 08/04/18 Range/Units 03:10 03:10 03:10 WBC 10.05 H (3.98-10.04) K/mm3 RBC 4.60 (3.98-5.22) M/mm3 Hgb 14.2 (11.2-15.7) gm/L Hct 41.7 (34.1-44.9) % MCV 90.7 (79.4-94.8) fl MCH 30.9 (25.6-32.2) pg MCHC 34.1 (32.2-35.5) g/dl RDW Std Deviation 44.0 (36.4-46.3) fL Plt Count 363 (182-369) K/mm3 MPV 8.9 L (9.4-12.3) fl Neutrophils % (Manual) 62 H (40-60) % Band Neutrophils % 0 (0-10) % Lymphocytes % (Manual) 20 (20-40) % Atypical Lymphs % 8 % Monocytes % (Manual) 5 (2-10) % Eosinophils % (Manual) 5 (0.7-5.8) % Basophils % (Manual) 0 L (0.1-1.2) Platelet Estimate Adequate Plt Morphology Comment Normal Anisocytosis 1np Microcytosis 1+ slight Macrocytosis 1+ slight RBC Morph Comment Sodium 146 H (136-145) mEq/L Potassium 4.4 (3.5-5.1) mEq/L Chloride 110 H (98-107) mEq/L Carbon Dioxide 25 (21-32) mEq/L Anion Gap 15.4 H (5-15) BUN 8 (7-18) mg/dL Creatinine 1.0 (0.55-1.02) mg/dL Est Cr Clr Drug Dosing 71.62 mL/min Estimated GFR (MDRD) > 60 (>60) mL/min BUN/Creatinine Ratio 8.0 L (14-18) Glucose 94 (74-106) mg/dL Calcium 8.2 L (8.5-10.1) mg/dL Total Bilirubin 0.2 (0.2-1.0) mg/dL AST 14 L (15-37) U/L ALT 27 (14-59) U/L Alkaline Phosphatase 62 (46-116) U/L Total Protein 7.0 (6.4-8.2) g/dl Albumin 3.8 (3.4-5.0) g/dl Globulin 3.2 gm/dL Albumin/Globulin Ratio 1.2 (1-2) TSH 3rd Generation 0.870 (0.358-3.74) uIU/mL Urine HCG, Qual (NEGATIVE) Salicylates 4.0 (2.8-20) mg/dL Urine Opiates Screen (BTJNUK=903) Ur Buprenorphine Scrn (CUTOFF=10) Ur Oxycodone Screen (AYK1HR=819) Urine Methadone Screen (YVUMQP=574) Ur Propoxyphene Screen (JVVDPK=886) Acetaminophen 0 L (10-30) ug/mL Ur Barbiturates Screen (KNXHOC=399) Ur Tricyclics Screen (OFIJIW=281) Ur Phencyclidine Scrn (CUTOFF=25) Ur Amphetamine Screen (CPCLKS=515) U Methamphetamines Scrn (LBEBIV=705) U Benzodiazepines Scrn (JKXWAF=411) U Cocaine Metab Screen (GIRECZ=614) U Marijuana (THC) Screen (CUTOFF=50) Ethyl Alcohol 0.13 (0.00) gm% 08/04/18 08/04/18 Range/Units 04:08 04:08 WBC (3.98-10.04) K/mm3 RBC (3.98-5.22) M/mm3 Hgb (11.2-15.7) gm/L Hct (34.1-44.9) % MCV (79.4-94.8) fl MCH (25.6-32.2) pg MCHC (32.2-35.5) g/dl RDW Std Deviation (36.4-46.3) fL Plt Count (182-369) K/mm3 MPV (9.4-12.3) fl Neutrophils % (Manual) (40-60) % Band Neutrophils % (0-10) % Lymphocytes % (Manual) (20-40) % Atypical Lymphs % % Monocytes % (Manual) (2-10) % Eosinophils % (Manual) (0.7-5.8) % Basophils % (Manual) (0.1-1.2) Platelet Estimate Plt Morphology Comment Anisocytosis Microcytosis Macrocytosis RBC Morph Comment Sodium (136-145) mEq/L Potassium (3.5-5.1) mEq/L Chloride (98-107) mEq/L Carbon Dioxide (21-32) mEq/L Anion Gap (5-15) BUN (7-18) mg/dL Creatinine (0.55-1.02) mg/dL Est Cr Clr Drug Dosing mL/min Estimated GFR (MDRD) (>60) mL/min BUN/Creatinine Ratio (14-18) Glucose (74-106) mg/dL Calcium (8.5-10.1) mg/dL Total Bilirubin (0.2-1.0) mg/dL AST (15-37) U/L ALT (14-59) U/L Alkaline Phosphatase (46-116) U/L Total Protein (6.4-8.2) g/dl Albumin (3.4-5.0) g/dl Globulin gm/dL Albumin/Globulin Ratio (1-2) TSH 3rd Generation (0.358-3.74) uIU/mL Urine HCG, Qual Negative (NEGATIVE) Salicylates (2.8-20) mg/dL Urine Opiates Screen Negative (CPXULP=332) Ur Buprenorphine Scrn Negative (CUTOFF=10) Ur Oxycodone Screen Negative (LJW4LY=674) Urine Methadone Screen Negative (KCFZLK=941) Ur Propoxyphene Screen Negative (GVQEMK=824) Acetaminophen (10-30) ug/mL Ur Barbiturates Screen Negative (RSDOCQ=667) Ur Tricyclics Screen Negative (CVCXZP=478) Ur Phencyclidine Scrn Negative (CUTOFF=25) Ur Amphetamine Screen Negative (LDYKZK=035) U Methamphetamines Scrn Negative (CXCSBU=474) U Benzodiazepines Scrn Presumptive positive H (IOAMBD=299) U Cocaine Metab Screen Negative (ZKGMTG=692) U Marijuana (THC) Screen Negative (CUTOFF=50) Ethyl Alcohol (0.00) gm% Medications Discontinued Medications Generic Name Dose Route Start Last Admin Trade Name Susy PRN Reason Stop Dose Admin Sodium Chloride 1,000 mls @ 100 mls/hr 08/04/18 03:00 08/04/18 03:14 Normal Saline IV 100 mls/hr ASDIRECTED [facility] Administration Lactated Ringer's 1,000 mls @ 999 mls/hr 08/04/18 07:48 08/04/18 07:58 Ringers, Lactated IV 08/04/18 08:48 999 mls/hr .BOLUS ONE Administration Lactated Ringer's 1,000 mls @ 150 mls/hr 08/04/18 08:00 Ringers, Lactated IV ASDIRECTED [facility] Medical Clearance: 08/04/18 07:46 Pt awakens, still sedated. States she did not take enough to get the job done. VS mostly stable still tachy pulse 115ish 08/04/18 08:03 Case discussed with poison controlAnatoliy, he recommends observation until about noon if she is awake and alert at that point she can be cleared. With the tachycardia I've ordered a liter bolus of LR and continuous drip after that 08/04/18 13:51 She is now awake and alert she cannot give me any clear statements that she is somewhat threat to herself she is regretful that she told somebody about taking the medication she has a bunch of external stressors she needs to find a new place to live get her kids to school and states she cannot be committed because of this. I discussed the patient's case with Dr. Garay who agrees the patient needs inpatient evaluation. Departure - Departure Time of Disposition: 15:11 Disposition: DC/Tfer to Acute Hospital 02 Clinical Impression: Suicide attempt by substance overdose, Alcohol intoxication - Discharge Information Referrals: PCP,None [Ordering Only Provider] - - My Orders Last 24 Hours: My Active Orders 08/04/18 02:58 EKG Documentation Completion [RC] STAT - Assessment/Plan Last 24 Hours: My Active Orders 08/04/18 02:58 EKG Documentation Completion [RC] STAT <Sesar Buckley - Last Filed: 08/04/18 21:10> ED HPI GENERAL MEDICAL PROBLEM - General Source of Information: Reports: Patient, EMS, RN (Shannan) History Limitations: Reports: Altered Mental Status (Patient lethargic) - History of Present Illness INITIAL COMMENTS - FREE TEXT/NARRATIVE: According to EMS, the patient took 30-35 tablets of diazepam 5 mg and 6 tablets of lorazepam 0.5 mg earlier this evening. Both of these medicines are prescribed to the patient by 2 different physicians, and both of the pill bottles are empty, however, the book shelver stated that the patient told him that that she had been hoarding these medicines. The patient told Shannan RN that she washed the pills down with half a beer, however, the book shelver told me that the patient's boyfriend told him that the patient had had 6-7 beers tonight. The patient told the book shelver that she took the pills with the intention of trying to kill herself. The patient's boyfriend told the book shelver that the patient has tried to kill herself in the past. Here in the ED, the patient is lethargic but arousable. Her oxygen saturation is noted to be 100% on room air. She states that she took the pills around 01: 30 this morning, perhaps earlier. She states that she took them because she wanted a "break from reality". She denies prior attempts to harm herself by overdose, and prior suicide attempt. 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 Musculoskeletal History: Reports: Back Pain, Chronic (DDD) Psychiatric History: Reports: Addiction (history of drug seeking behavior), Anxiety Hematologic History: Reports: Anemia, Iron Deficiency - Past Surgical History GI Surgical History: Reports: Cholecystectomy Female Surgical History: Reports: Other (See Below) (Exploratory laparoscopy for endometriosis - none found) Neurological Surgical History: Reports: Spinal Fusion (lumbar, 04/12/2018) Social & Family History - Family History Family Medical History: Noncontributory - Tobacco Use Smoking Status *Q: Current Every Day Smoker Month/Year Tobacco Last Used: unknown - Caffeine Use Caffeine Use: Reports: Coffee - Alcohol Use Alcohol Use History: Yes - Living Situation & Occupation Living situation: Reports: with Significant Other (Boyfriend) ED ROS GENERAL - Review of Systems Review Of Systems: ROS reveals no pertinent complaints other than HPI. ED EXAM, BEHAVIORAL HEALTH - Physical Exam Exam: See Below Exam Limited By: Altered Mental Status General Appearance: Lethargic, Thin Eye Exam: Bilateral Eye: EOMI, Normal Inspection Ears: Normal External Exam Nose: Normal Inspection Throat/Mouth: Normal Inspection, Normal Lips, Normal Voice, No Airway Compromise Head: Atraumatic, Normocephalic Neck: Normal Inspection, Full Range of Motion Respiratory/Chest: No Respiratory Distress, Lungs Clear, Normal Breath Sounds, No Accessory Muscle Use Cardiovascular: Normal Peripheral Pulses, No Edema, No Gallop, No JVD, No Murmur , No Rub, Tachycardia (regular) GI/Abdominal: Normal Bowel Sounds, Soft, Non-Tender, No Organomegaly, No Distention, No Abnormal Bruit, No Mass (Female) Exam: Deferred Back Exam: Normal Inspection, Full Range of Motion, NT Extremities: Normal Range of Motion, No Pedal Edema, Normal Capillary Refill, Other (Several linear scratches, some with dried blood/scabs, to the medial left leg) Neurological: Slow Response to Commands Psychiatric: Other (Unable to asses) Skin Exam: Warm, Dry, Intact, Normal color, No rash EKG INTERPRETATION EKG Date: 08/04/18 Time: 03:12 Rhythm: Other (Sinus tachycardia) Rate (Beats/Min): 104 [place]: Normal (borderline RAD) P-Wave: Present QRS: Normal ST-T: Normal QT: Normal (at upper limits of normal) Comparison: NA - No Prior EKG COURSE, BEHAVIORAL HEALTH COMP - Course Medical Clearance: 08/04/18 04:52 The patient's medical evaluation is remarkable only for an alcohol level elevated at 0.13, and a urine drug screen positive for benzodiazepines. At this time, the patient is too intoxicated/sedated to be considered medically cleared. She will need to remain in the ED until she is sober/awake, at which time arrangements can be made to admit the patient to a psychiatric facility. While it is true that the patient was intoxicated when she took the pills, it also appears that the patient hoarded the pills, therefore this was a planned event, not spontaneous. 08/04/18 05:04 The patient's boyfriend has come to the ED. He states that he and the patient were at some friends tonight, playing cards and drinking beer. He confirmed that the patient likely had 6-7 beers tonight. They returned home, and the patient stated that she was "ready to be done", and that it was perfect, because the kids weren't there. The patient's boyfriend left to get their kids, but the patient called him, asking him to return home. He did, returning around 00:25, finding the 2 pill bottles empty. He estimates that the patient took the pills shortly after midnight. The patient's boyfriend believes that the patient' s actions were a genuine suicide attempt. He is not aware of any prior suicide attempt by the patient. 08/04/18 07:00 The patient has been resting comfortably. She is still mildly tachycardic, but her vitals are otherwise stable. She continues to receive IV NS. Case discussed with Dr. Joseph, and care of the patient turned over to him at this time, for change of shift. Departure - Discharge Information *PRESCRIPTION DRUG MONITORING PROGRAM REVIEWED*: Not Applicable *COPY OF PRESCRIPTION DRUG MONITORING REPORT IN PATIENT RM: Not Applicable
[2018-08-04 03:54] LABS: ACETAMINOPHEN 0 ug/mL (10-30)
[2018-08-04] MEDS ORDERED: Lactated Ringers 1,000 ML IV ONE (07:48)
[2018-08-04] MEDS ORDERED: Lactated Ringers 1,000 ML IV SCH (08:00)
[2018-08-04 12:40] VITALS: BP 100/73
== END 2018-08-04 17:15 ==
LOC: JD.ED 02:43
DX: T42.4X2A Poisoning by benzodiazepines, intentional self-harm, initial encounter (principal); R53.83 Other fatigue; F10.229 Alcohol dependence with intoxication, unspecified; F17.200 Nicotine dependence, unspecified, uncomplicated; Z88.2 Allergy status to sulfonamides; Z90.49 Acquired absence of other specified parts of digestive tract; Z98.1 Arthrodesis status; Y90.6 Blood alcohol level of 120-199 mg/100 ml
CPT/HCPCS: 36415; 80053; 80306; 81025; 84443; 85007; 85027; 93005; 96360; 96361; 99285; G0480; J7040; J7120

== ENCOUNTER 2019-08-04 17:23 | Emergency (ER) | payer BC, MEDICAID ==
[2019-08-04 17:33] VITALS: BP 114/70; PULSE 84
[2019-08-04] MEDS ORDERED: Sodium Chloride 0.9% 1,000 ML IV STA (17:34)
[2019-08-04] MEDS ORDERED: Sodium Chloride 0.9% 10 ML Syringe FLUSH PRN (17:34)
[2019-08-04] MEDS ORDERED: Ondansetron 4 MG/2 ML SDV IVPUSH ONE (17:34)
[2019-08-04] MEDS ORDERED: HYDROmorphone 0.5 MG/0.5 ML Syringe IVPUSH ONE (17:35)
[2019-08-04] MEDS ORDERED: Sodium Chloride 0.9% 1,000 ML IV ONE (19:28)
--- NOTE | 2019-08-04 19:32 | EDM.PDOC ---
ED HPI GENERAL MEDICAL PROBLEM - General Chief Complaint: Gastrointestinal Problem Stated Complaint: VOMITING CANT EAT OR DRINK Time Seen by Provider: 08/04/19 17:30 Source of Information: Reports: Patient History Limitations: Reports: No Limitations - History of Present Illness INITIAL COMMENTS - FREE TEXT/NARRATIVE: The patient presents with body aches, nausea, vomiting and diarrhea. She also has a fever and chills. This all started late night. She has not been able to keep anything down. She also has some generalized abdominal pain. She has no cough, congestion or runny nose. She does not thinks she is . She has not been around anyone who is sick. She did not eat any bad food. Onset: Gradual Duration: Day(s): Location: Reports: Abdomen Quality: Reports: Ache Severity: Mild Improves with: Reports: None Worsens with: Reports: None Associated Symptoms: Reports: Fever/Chills, Nausea/Vomiting. Denies: Chest Pain , Cough, Headaches, Shortness of Breath Generalized Pain Score (Numeric/FACES): 7 - Related Data Allergies Allergy/AdvReac Type Severity Reaction Status Date / Time Sulfa (Sulfonamide Allergy Joint Pain Verified 08/04/19 17:34 Antibiotics) Home Meds: Home Meds Depo Shot. 1 injection IM ASDIRECTED 08/04/19 [History] Past Medical History Cardiovascular History: Reports: None Other Cardiovascular History: anemic Respiratory History: Reports: None Other Respiratory History: current smoker Gastrointestinal History: Reports: Cholelithiasis Genitourinary History: Reports: UTI, Recurrent, Other (See Below) Other Genitourinary History: Recurrent UTIs, kidney infections, possible stones - was directed to see urology after delivery per pt. 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: Reports: Endometriosis, , Spontaneous Other 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: laparoscopic procedure for endometriosis Musculoskeletal History: Reports: Back Pain, Chronic Other Musculoskeletal History: L5 degenerative disk Psychiatric History: Reports: Addiction, Anxiety Other Psychiatric History: increased stress Hematologic History: Reports: Anemia, Iron Deficiency - Past Surgical History Head Surgeries/Procedures: Reports: None GI Surgical History: Reports: Cholecystectomy Neurological Surgical History: Reports: Spinal Fusion Musculoskeletal Surgical History: Reports: Other (See Below) Other Musculoskeletal Surgeries/Procedures:: spinal fusion Social & Family History - Family History Family Medical History: Noncontributory - Tobacco Use Smoking Status *Q: Never Smoker Second Hand Smoke Exposure: No - Caffeine Use Caffeine Use: Reports: Coffee - Recreational Drug Use Recreational Drug Use: No - Living Situation & Occupation Living situation: Reports: with Significant Other (Boyfriend) Occupation: Employed ([employer]) ED ROS GENERAL - Review of Systems Review Of Systems: See Below Constitutional: Reports: No Symptoms HEENT: Reports: No Symptoms Respiratory: Reports: No Symptoms Cardiovascular: Reports: No Symptoms Endocrine: Reports: No Symptoms GI/Abdominal: Reports: Abdominal Pain, Diarrhea, Nausea, Vomiting : Reports: No Symptoms Musculoskeletal: Reports: Muscle Pain Skin: Reports: No Symptoms Neurological: Reports: No Symptoms ED EXAM, GI/ABD - Physical Exam Exam: See Below Exam Limited By: No Limitations General Appearance: Alert, No Apparent Distress Ears: Normal External Exam Nose: Normal Inspection Head: Atraumatic, Normocephalic Neck: Normal Inspection Respiratory/Chest: No Respiratory Distress, Lungs Clear, Normal Breath Sounds Cardiovascular: Regular Rate, Rhythm, No Edema, No Murmur GI/Abdominal Exam: Soft, Non-Tender, No Organomegaly, No Mass Back Exam: Normal Inspection Extremities: Normal Inspection Course - Vital Signs Last Recorded V/S: Last Vital Signs Temp 98.6 F 08/04/19 17:30 Pulse 84 08/04/19 17:30 Resp 16 08/04/19 17:30 BP 114/70 08/04/19 17:30 Pulse Ox 99 08/04/19 17:30 - Orders/Labs/Meds Orders: Active Orders 24 hr Category Date Time Status Peripheral IV Care [RC] . DIRECTED Care 08/04/19 17:34 Active Sodium Chloride 0.9% [Normal Saline] 1,000 ml Med 08/04/19 19:28 Active IV ONETIME Sodium Chloride 0.9% [Saline Flush] Med 08/04/19 17:34 Active 10 ml FLUSH ASDIRECTED PRN ED Antiemetic Medication Reflex [OM.PC] Stat Oth 08/04/19 17:34 Ordered Peripheral IV Insertion Adult [OM.PC] Stat Oth 08/04/19 17:34 Ordered Medication Orders Sodium Chloride (Normal Saline) 1,000 mls @ 1,000 mls/hr IV ONETIME ONE Stop: 08/04/19 20:27 Last Admin: 08/04/19 19:37 Dose: 1,000 mls/hr Sodium Chloride (Saline Flush) 10 ml FLUSH ASDIRECTED PRN PRN Reason: Keep Vein Open Last Admin: 08/04/19 17:46 Dose: 10 ml Labs: Laboratory Tests 08/04/19 08/04/19 08/04/19 Range/Units 17:45 17:45 17:45 WBC 6.99 (3.98-10.04) K/mm3 RBC 4.54 (3.98-5.22) M/mm3 Hgb 13.7 (11.2-15.7) gm/dl Hct 40.0 (34.1-44.9) % MCV 88.1 (79.4-94.8) fl MCH 30.2 (25.6-32.2) pg MCHC 34.3 (32.2-35.5) g/dl RDW Std Deviation 38.8 (36.4-46.3) fL Plt Count 266 D (182-369) K/mm3 MPV 8.9 L (9.4-12.3) fl Neut % (Auto) 65.8 (34.0-71.1) % Lymph % (Auto) 27.3 (19.3-51.7) % Hand % (Auto) 5.9 (4.7-12.5) % Eos % (Auto) 0.6 L (0.7-5.8) Baso % (Auto) 0.3 (0.1-1.2) % Neut # (Auto) 4.60 (1.56-6.13) K/mm3 Lymph # (Auto) 1.91 (1.18-3.74) K/mm3 Hand # (Auto) 0.41 H (0.24-0.36) K/mm3 Eos # (Auto) 0.04 (0.04-0.36) K/mm3 Baso # (Auto) 0.02 (0.01-0.08) K/mm3 Sodium 140 (136-145) mEq/L Potassium 3.3 L (3.5-5.1) mEq/L Chloride 102 (98-107) mEq/L Carbon Dioxide 22 (21-32) mEq/L Anion Gap 19.3 H (5-15) BUN 11 (7-18) mg/dL Creatinine 1.0 (0.55-1.02) mg/dL Est Cr Clr Drug Dosing 77.08 mL/min Estimated GFR (MDRD) > 60 (>60) mL/min BUN/Creatinine Ratio 11.0 L (14-18) Glucose 97 (74-106) mg/dL Calcium 8.5 (8.5-10.1) mg/dL Total Bilirubin 0.8 (0.2-1.0) mg/dL AST 16 (15-37) U/L ALT 37 (14-59) U/L Alkaline Phosphatase 49 (46-116) U/L Total Protein 6.9 (6.4-8.2) g/dl Albumin 3.8 (3.4-5.0) g/dl Globulin 3.1 gm/dL Albumin/Globulin Ratio 1.2 (1-2) Lipase 77 (73-393) U/L HCG, Qual Negative (NEGATIVE) Urine Color (Yellow) Urine Appearance (Clear) Urine pH (5.0-8.0) Ur Specific [place] (1.005-1.030) Urine Protein (Negative) Urine Glucose (UA) (Negative) Urine Ketones (Negative) Urine Occult Blood (Negative) Urine Nitrite (Negative) Urine Bilirubin (Negative) Urine Urobilinogen (0.2-1.0) Ur Leukocyte Esterase (Negative) Urine RBC (0-5) /hpf Urine WBC (0-5) /hpf Ur Squamous Epith Cells (0-5) /hpf Urine Bacteria (FEW) /hpf Urine Mucus (FEW) /hpf 08/04/19 Range/Units 18:39 WBC (3.98-10.04) K/mm3 RBC (3.98-5.22) M/mm3 Hgb (11.2-15.7) gm/dl Hct (34.1-44.9) % MCV (79.4-94.8) fl MCH (25.6-32.2) pg MCHC (32.2-35.5) g/dl RDW Std Deviation (36.4-46.3) fL Plt Count (182-369) K/mm3 MPV (9.4-12.3) fl Neut % (Auto) (34.0-71.1) % Lymph % (Auto) (19.3-51.7) % Hand % (Auto) (4.7-12.5) % Eos % (Auto) (0.7-5.8) Baso % (Auto) (0.1-1.2) % Neut # (Auto) (1.56-6.13) K/mm3 Lymph # (Auto) (1.18-3.74) K/mm3 Hand # (Auto) (0.24-0.36) K/mm3 Eos # (Auto) (0.04-0.36) K/mm3 Baso # (Auto) (0.01-0.08) K/mm3 Sodium (136-145) mEq/L Potassium (3.5-5.1) mEq/L Chloride (98-107) mEq/L Carbon Dioxide (21-32) mEq/L Anion Gap (5-15) BUN (7-18) mg/dL Creatinine (0.55-1.02) mg/dL Est Cr Clr Drug Dosing mL/min Estimated GFR (MDRD) (>60) mL/min BUN/Creatinine Ratio (14-18) Glucose (74-106) mg/dL Calcium (8.5-10.1) mg/dL Total Bilirubin (0.2-1.0) mg/dL AST (15-37) U/L ALT (14-59) U/L Alkaline Phosphatase (46-116) U/L Total Protein (6.4-8.2) g/dl Albumin (3.4-5.0) g/dl Globulin gm/dL Albumin/Globulin Ratio (1-2) Lipase (73-393) U/L HCG, Qual (NEGATIVE) Urine Color Yellow (Yellow) Urine Appearance Slt cloudy H (Clear) Urine pH 6.5 (5.0-8.0) Ur Specific [place] > or = 1.030 (1.005-1.030) Urine Protein Trace H (Negative) Urine Glucose (UA) Negative (Negative) Urine Ketones 1+ H (Negative) Urine Occult Blood 2+ H (Negative) Urine Nitrite Negative (Negative) Urine Bilirubin 1+ H (Negative) Urine Urobilinogen 0.2 (0.2-1.0) Ur Leukocyte Esterase Negative (Negative) Urine RBC 10-20 H (0-5) /hpf Urine WBC 0-5 (0-5) /hpf Ur Squamous Epith Cells 10-20 H (0-5) /hpf Urine Bacteria Rare (FEW) /hpf Urine Mucus Many H (FEW) /hpf Meds: Medications Generic Name Dose Route Start Last Admin Trade Name Freq PRN Reason Stop Dose Admin Sodium Chloride 1,000 mls @ 1,000 mls/hr 08/04/19 19:28 08/04/19 19:37 Normal Saline IV 08/04/19 20:27 1,000 mls/hr ONETIME ONE Administration Sodium Chloride 10 ml 08/04/19 17:34 08/04/19 17:46 Saline Flush FLUSH 10 ml ASDIRECTED PRN Administration Keep Vein Open Discontinued Medications Generic Name Dose Route Start Last Admin Trade Name Freq PRN Reason Stop Dose Admin Hydromorphone HCl 0.5 mg 08/04/19 17:35 08/04/19 17:45 Dilaudid IVPUSH 08/04/19 17:36 0.5 mg ONETIME ONE Administration Sodium Chloride 1,000 mls @ 1,000 mls/hr 08/04/19 17:34 08/04/19 17:45 Normal Saline IV 08/04/19 18:33 1,000 mls/hr .BOLUS STA Administration Ondansetron HCl 4 mg 08/04/19 17:34 08/04/19 17:45 Zofran IVPUSH 08/04/19 17:35 4 mg ONETIME ONE Administration - Re-Assessments/Exams Free Text/Narrative Re-Assessment/Exam: 08/04/19 19:31 I ordered an IV NS 1L bolus, zofran 4mg IV, dilaudid IV, labs and UA. Her CBC looks good. Her K was a little low at 3.3. Her anion gaps is elevated at 19.3. Her lipase is normal. Her HCG is negative. Her UA shows no UTI. I have ordered influenza and another liter of fluids. Departure - Departure Time of Disposition: 19:40 Disposition: Home, Self-Care 01 Condition: Good Clinical Impression: Gastroenteritis, Dehydration - Discharge Information *PRESCRIPTION DRUG MONITORING PROGRAM REVIEWED*: Not Applicable *COPY OF PRESCRIPTION DRUG MONITORING REPORT IN PATIENT RM: Not Applicable Referrals: Leonor Camacho PA-C [Primary Care Provider] - 1 Week Forms: ED Department Discharge, ED Return to Work/School Form Additional Instructions: Drink plenty of fluids. Take the zofran every 6 hours as needed for nausea and vomiting. Take motrin or tylenol for any fever. Please return if you are worse. Sepsis Event Note - Evaluation Sepsis Screening Result: No Definite Risk - Focused Exam Vital Signs: Vital Signs Temp Pulse Resp BP Pulse Ox 08/04/19 17:30 98.6 F 84 16 114/70 99 Date Exam was Performed: 08/04/19 Time Exam was Performed: 19:37 - My Orders Last 24 Hours: My Active Orders 08/04/19 17:34 Peripheral IV Care [RC] . DIRECTED Sodium Chloride 0.9% [Saline Flush] 10 ml FLUSH ASDIRECTED PRN ED Antiemetic Medication Reflex [OM.PC] Stat Peripheral IV Insertion Adult [OM.PC] Stat 08/04/19 19:28 Sodium Chloride 0.9% [Normal Saline] 1,000 ml IV ONETIME - Assessment/Plan Last 24 Hours: My Active Orders 08/04/19 17:34 Peripheral IV Care [RC] . DIRECTED Sodium Chloride 0.9% [Saline Flush] 10 ml FLUSH ASDIRECTED PRN ED Antiemetic Medication Reflex [OM.PC] Stat Peripheral IV Insertion Adult [OM.PC] Stat 08/04/19 19:28 Sodium Chloride 0.9% [Normal Saline] 1,000 ml IV ONETIME
== END 2019-08-04 20:41 | disposition home or self-care (01) ==
LOC: JD.ED 17:23
DX: K52.9 Noninfective gastroenteritis and colitis, unspecified (principal); E86.0 Dehydration; F17.200 Nicotine dependence, unspecified, uncomplicated; Z88.2 Allergy status to sulfonamides
CPT/HCPCS: 36415; 80053; 81001; 83690; 84703; 85025; 87804; 96361; 96374; 96375; 99284; J1170; J2405; J7030

== ENCOUNTER 2019-09-06 23:53 | Emergency (ER) | payer BC, MEDICAID ==
[2019-09-07 00:10] VITALS: BP 109/80; PULSE 89
--- NOTE | 2019-09-07 00:38 | EDM.PDOC ---
ED HPI GENERAL MEDICAL PROBLEM - General Chief Complaint: Lower Extremity Injury/Pain Stated Complaint: RIGHT HIP AND LOWER BACK PAIN Time Seen by Provider: 09/06/19 23:55 Source of Information: Reports: Patient History Limitations: Reports: No Limitations - History of Present Illness INITIAL COMMENTS - FREE TEXT/NARRATIVE: This is a 34-year-old female. She states on of last year she fell on her right hip. Since that time she has been having intermittent right hip pain and groin pain. She has not seen anyone about this and over the last 4 to 6 weeks this pain has gotten worse. 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 She did not fall down this evening. She says any weightbearing on that right hip and leg causes increased pain. She is never had any x-rays of the hip and the pelvis area. Where she explains that her pain is includes the adductor muscle and tendon as well as the sartorius muscle in the right thigh area. She denies any other acute symptoms. Right Groin Pain Score (Numeric/FACES): 8 - Related Data Allergies Allergy/AdvReac Type Severity Reaction Status Date / Time Sulfa (Sulfonamide Allergy Joint Pain Verified 08/04/19 17:34 Antibiotics) Home Meds: Home Meds Depo Shot. 1 injection IM ASDIRECTED 08/04/19 [History] Hydrocodone/Acetaminophen [Hydrocodon-Acetaminophen 5-325] 1 each PO Q6H PRN # 12 tablet 09/07/19 [Rx] Past Medical History Cardiovascular History: Reports: None Other Cardiovascular History: anemic Respiratory History: Reports: None Other Respiratory History: current smoker Gastrointestinal History: Reports: Cholelithiasis Genitourinary History: Reports: UTI, Recurrent, Other (See Below) Other Genitourinary History: Recurrent UTIs, kidney infections, possible stones - was directed to see urology after delivery per pt. 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: laparoscopic procedure for endometriosis Musculoskeletal History: Reports: Back Pain, Chronic Other Musculoskeletal History: L5 degenerative disk Psychiatric History: Reports: Addiction, Anxiety Other Psychiatric History: increased stress Hematologic History: Reports: Anemia, Iron Deficiency - Past Surgical History Head Surgeries/Procedures: Reports: None GI Surgical History: Reports: Cholecystectomy Neurological Surgical History: Reports: Spinal Fusion Musculoskeletal Surgical History: Reports: Other (See Below) Other Musculoskeletal Surgeries/Procedures:: spinal fusion Social & Family History - Family History Family Medical History: Noncontributory - Tobacco Use Smoking Status *Q: Former Smoker Used Tobacco, but Quit: Yes Month/Year Tobacco Last Used: 02/2018 - Caffeine Use Caffeine Use: Reports: Coffee - Recreational Drug Use Recreational Drug Use: No - Living Situation & Occupation Living situation: Reports: with Significant Other (Boyfriend) 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) Review of Systems - Review of Systems Review Of Systems: See Below Constitutional: Denies: Chills, Fever Eyes: Reports: No Symptoms Ears: Reports: No Symptoms Nose: Reports: No Symptoms Mouth/Throat: Reports: No Symptoms Respiratory: Reports: No Symptoms Cardiovascular: Reports: No Symptoms GI/Abdominal: Reports: No Symptoms Genitourinary: Reports: No Symptoms Musculoskeletal: Reports: Other (Right hip and groin pain) Skin: Reports: No Symptoms Neurological: Reports: No Symptoms Psychiatric: Reports: No Symptoms ED EXAM, GENERAL - Physical Exam Exam: See Below Exam Limited By: No Limitations General Appearance: Alert, WD/WN, No Apparent Distress Eye Exam: Bilateral Eye: Normal Inspection Ears: Normal External Exam Nose: Normal Inspection Throat/Mouth: Normal Inspection, Normal Lips, Normal Voice, No Airway Compromise Head: Normocephalic Neck: Supple Respiratory/Chest: No Respiratory Distress Back Exam: Full Range of Motion Extremities: Other (Complains of right groin pain, on palpation she is tender in the adductor muscle and tendon that attaches to the pelvis as well as a distribution down the sartorius muscle toward the medial knee, any sort of leg raising tends to hurt in that area and her right hip. She does not have any shortening of that right leg noted. She denies any low back pain.) Neurological: Alert, Oriented Psychiatric: Normal Affect, Normal Mood Skin Exam: Warm, Dry Course - Vital Signs Last Recorded V/S: Last Vital Signs Temp 98.4 F 09/07/19 00:07 Pulse 89 09/07/19 00:07 Resp 19 09/07/19 00:07 BP 109/80 09/07/19 00:07 Pulse Ox 100 09/07/19 00:07 - Orders/Labs/Meds Orders: Active Orders 24 hr Category Date Time Status Hip Min 2V or 3V w Pelvis Rt [CR] Stat Exams 09/07/19 00:29 Taken Meds: Medications Discontinued Medications Generic Name Dose Route Start Last Admin Trade Name Susy PRN Reason Stop Dose Admin Ketorolac Tromethamine 60 mg 09/07/19 01:31 Toradol IM 09/07/19 01:32 ONETIME ONE - Radiology Interpretation Free Text/Narrative:: X-ray of the right hip and pelvis does not show any acute fractures - Re-Assessments/Exams Free Text/Narrative Re-Assessment/Exam: 09/07/19 01:38 Spoke to the patient regarding the x-ray results. I think she is pulled her adductor muscle and sartorius muscle and has continued to aggravate it since . She needs to follow-up with her family doctor and be put in physical therapy and if that does not seem to help then possibly an MRI of the right hip and pelvis would be appropriate. In the meantime to be very careful with ambulating and use her crutches that she has at home if needed and I will give her some medication to help with the soreness. Suggested placing ice on the sore muscles in the groin area. Departure - Departure Time of Disposition: 01:39 Disposition: Home, Self-Care 01 Condition: Fair Clinical Impression: Strain of muscle of right groin region, Sprain of hip - Discharge Information *PRESCRIPTION DRUG MONITORING PROGRAM REVIEWED*: No *COPY OF PRESCRIPTION DRUG MONITORING REPORT IN PATIENT RM: No Prescriptions: Hydrocodone/Acetaminophen [Hydrocodon-Acetaminophen 5-325] 1 each PO Q6H PRN # 12 tablet PRN Reason: Pain Instructions: Muscle Strain, [id number] Referrals: Leonor Camacho PA-C [Primary Care Provider] - Forms: ED Department Discharge Additional Instructions: Use your crutches at home to help with ambulation if you desire to, use ice to the groin area to help with the muscle soreness and tenderness, the medication as needed for pain, follow-up with your family doctor for possible physical therapy and if that does not help then possibly an MRI of your right hip and pelvis, return to the ER if needed Sepsis Event Note - Evaluation Sepsis Screening Result: No Definite Risk - Focused Exam Vital Signs: Vital Signs Temp Pulse Resp BP Pulse Ox 09/07/19 00:07 98.4 F 89 19 109/80 100 Date Exam was Performed: 09/07/19 Time Exam was Performed: 01:38 - My Orders Last 24 Hours: My Active Orders 09/07/19 00:29 Hip Min 2V or 3V w Pelvis Rt [CR] Stat - Assessment/Plan Last 24 Hours: My Active Orders 09/07/19 00:29 Hip Min 2V or 3V w Pelvis Rt [CR] Stat
[2019-09-07] MEDS ORDERED: Ketorolac 60 MG/2 ML SDV IM ONE (01:31)
[2019-09-07] MEDS ORDERED: Ketorolac 60 MG/2 ML SDV ONE (01:38)
--- NOTE | 2019-09-07 08:29 | CR ---
Pelvis and right hip: AP view of the pelvis was obtained as well as AP and frog-leg lateral views of the right hip. Comparison: No prior pelvis or hip exam. Previous lumbar spine surgery is partially visualized. Joint spaces within both hips are maintained. Sacroiliac joints are unremarkable. No fracture or other bony abnormality is seen. Impression: 1. Previous lumbar spine surgery. 2. AP pelvis and two-view right hip exam are otherwise unremarkable. Diagnostic code #2 This report was dictated in [place] Standard Time
== END 2019-09-07 02:05 | disposition home or self-care (01) ==
LOC: JD.ED 23:53
DX: S39.011A Strain of muscle, fascia and tendon of abdomen, initial encounter (principal); S73.101A Unspecified sprain of right hip, initial encounter; Z88.2 Allergy status to sulfonamides; Z87.891 Personal history of nicotine dependence; W19.XXXA Unspecified fall, initial encounter
CPT/HCPCS: 73502; 96372; 99283; J1885

== ENCOUNTER 2019-09-21 15:35 | Emergency (ER) | payer BC, MEDICAID ==
[2019-09-21 16:06] VITALS: BP 103/67; PULSE 90
[2019-09-21] MEDS ORDERED: fentaNYL 100 MCG/2 ML SDV IVPUSH PRN ×2 (17:40→18:15)
--- NOTE | 2019-09-21 19:29 | CR ---
Left ribs: 3 views left ribs were obtained. Comparison: No prior rib exam Surgical clips are seen from prior cholecystectomy. No discrete fracture or other left-sided rib abnormality is appreciated. Impression: 1. Nothing acute is appreciated on 3 view left rib exam. Diagnostic code #1 This report was dictated in [place] Standard Time
--- NOTE | 2019-09-21 19:29 | CR ---
Chest: 2 views of the chest were obtained. Comparison: Prior chest x-ray of 03/28/18. Heart size and mediastinum are normal. Lungs are clear. Bony structures are unremarkable. Impression: 1. Nothing acute is seen on 2 view chest x-ray. Diagnostic code #1 This report was dictated in [place] Standard Time
--- NOTE | 2019-09-21 20:02 | EDM.PDOC ---
ED HPI GENERAL MEDICAL PROBLEM - General Chief Complaint: Back Pain or Injury Stated Complaint: FELL AT WORK HURT KNEE AND BACK Time Seen by Provider: 09/21/19 19:57 - History of Present Illness INITIAL COMMENTS - FREE TEXT/NARRATIVE: 34-year-old female presents the emergency room with a left-sided chest wall injury. The patient was working was walking turned a corner and slipped on some water that was on the floor falling into the ice machine she hit her left chest on a sharp corner. Patient complains of some significant discomfort with this taking a deep breath is very difficult. Patient also struck her left knee in the fall but is walking on this without too much difficulty. Left Knee Pain Score (Numeric/FACES): 6 Left Chest Pain Score (Numeric/FACES): 8 - Related Data Allergies Allergy/AdvReac Type Severity Reaction Status Date / Time Sulfa (Sulfonamide Allergy Joint Pain Verified 09/21/19 16:01 Antibiotics) Home Meds: Home Meds Depo Shot. 1 injection IM ASDIRECTED 08/04/19 [History] Acetaminophen/HYDROcodone [[place] 325-5 MG] 1 - 2 tab PO Q6H PRN #20 tablet 09/21 [Rx] Naproxen [Naprosyn] 500 mg PO Q12HR #30 tab 09/21/19 [Rx] Past Medical History Cardiovascular History: Reports: None Other Cardiovascular History: anemic Respiratory History: Reports: None Other Respiratory History: current smoker Gastrointestinal History: Reports: Cholelithiasis Genitourinary History: Reports: UTI, Recurrent, Other (See Below) Other Genitourinary History: Recurrent UTIs, kidney infections, possible stones - was directed to see urology after delivery per pt. 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: Reports: Endometriosis, , Spontaneous Other 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: laparoscopic procedure for endometriosis Musculoskeletal History: Reports: Back Pain, Chronic Other Musculoskeletal History: L5 degenerative disk Psychiatric History: Reports: Addiction, Anxiety Other Psychiatric History: increased stress Hematologic History: Reports: Anemia, Iron Deficiency - Past Surgical History Head Surgeries/Procedures: Reports: None GI Surgical History: Reports: Cholecystectomy Neurological Surgical History: Reports: Spinal Fusion Musculoskeletal Surgical History: Reports: Other (See Below) Other Musculoskeletal Surgeries/Procedures:: spinal fusion Social & Family History - Family History Family Medical History: Noncontributory - Tobacco Use Smoking Status *Q: Never Smoker - Caffeine Use Caffeine Use: Reports: Coffee - Living Situation & Occupation Living situation: Reports: with Significant Other (Boyfriend) 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 Denies: Abdominal Pain : Reports: No Symptoms Musculoskeletal: Reports: Other (History of present illness) Skin: Reports: Other (She has an abrasion as a result of this fall) Neurological: Reports: No Symptoms ED EXAM, UPPER BACK/NECK PAIN - Physical Exam Exam: See Below Exam Limited By: No Limitations General Appearance: Alert, No Apparent Distress Head Exam: Atraumatic, Normocephalic Neck Exam: Non-Tender, Full Range of Motion, Normal Alignment, Normal Inspection. No: Spinous Processes Tender Cardiovascular/Respiratory: Regular Rate, Rhythm, No M/R/G, Normal Breath Sounds , No Respiratory Distress, Other (She has significant discomfort with deep breathing. She has an abrasion on the left lateral lower chest with significant discomfort around this area. She does not have any discomfort near the sternum just around the abrasion.) GI/Abdominal: Normal Bowel Sounds, Soft, Non-Tender Course - Vital Signs Last Recorded V/S: Last Vital Signs Temp 37.1 C 09/21/19 16:01 Pulse 90 09/21/19 16:01 Resp 18 09/21/19 16:01 BP 103/67 09/21/19 16:01 Pulse Ox 98 09/21/19 16:01 - Orders/Labs/Meds Orders: Active Orders 24 hr Category Date Time Status CULTURE URINE [RM] Stat Lab 09/21/19 17:25 Received fentaNYL [Sublimaze] Med 09/21/19 17:40 Active 50 mcg IVPUSH Q5M PRN fentaNYL [Sublimaze] Med 09/21/19 18:15 Active 50 mcg IVPUSH Q5M PRN Medication Orders Fentanyl (Sublimaze) 50 mcg IVPUSH Q5M PRN PRN Reason: Pain Last Admin: 09/21/19 17:52 Dose: 50 mcg Fentanyl (Sublimaze) 50 mcg IVPUSH Q5M PRN PRN Reason: Pain Last Admin: 09/21/19 18:33 Dose: 50 mcg Labs: Laboratory Tests 09/21/19 09/21/19 Range/Units 17:25 17:45 Urine Color Yellow (Yellow) Urine Appearance Clear (Clear) Urine pH 6.5 (5.0-8.0) Ur Specific Juda 1.025 (1.005-1.030) Urine Protein Negative (Negative) Urine Glucose (UA) Negative (Negative) Urine Ketones Negative (Negative) Urine Occult Blood 1+ H (Negative) Urine Nitrite Negative (Negative) Urine Bilirubin Negative (Negative) Urine Urobilinogen 0.2 (0.2-1.0) Ur Leukocyte Esterase Trace H (Negative) Urine RBC 5-10 H (0-5) /hpf Urine WBC 5-10 H (0-5) /hpf Ur Squamous Epith Cells 10-20 H (0-5) /hpf Urine Bacteria Rare (FEW) /hpf Urine Mucus Not seen (FEW) /hpf Urine HCG, Qual Negative (NEGATIVE) Meds: Medications Generic Name Dose Route Start Last Admin Trade Name Freq PRN Reason Stop Dose Admin Fentanyl 50 mcg 09/21/19 17:40 09/21/19 17:52 Sublimaze IVPUSH 50 mcg Q5M PRN Administration Pain Fentanyl 50 mcg 09/21/19 18:15 09/21/19 18:33 Sublimaze IVPUSH 50 mcg Q5M PRN Administration Pain - Re-Assessments/Exams Free Text/Narrative Re-Assessment/Exam: 09/21/19 20:01 Some relief after a couple doses of fentanyl we will discharge her with some [place] and start Naprosyn. Patient has what looks like a contaminated urine sample however culture and sensitivity has been set up on this as the patient does have recurrent urinary tract infections. The patient would like to hold off on antibiotics until results are the urine culture known Departure - Departure Time of Disposition: 20:02 Disposition: Home, Self-Care 01 Clinical Impression: Contusion of left chest wall, Abrasion of left chest wall - Discharge Information Prescriptions: Naproxen [Naprosyn] 500 mg PO Q12HR #30 tab Acetaminophen/HYDROcodone [[place] 325-5 MG] 1 - 2 tab PO Q6H PRN #20 tablet PRN Reason: Pain Instructions: Chest Contusion, Adult, [id number] Referrals: Fridrich,Leonor F, PA-C [Primary Care Provider] - Forms: ED Department Discharge, ED Return to Work/School Form Additional Instructions: Return to the emergency room with any questions problems or worsening symptoms. Take the Naprosyn twice daily be sure and take with your morning and evening meals. Use the [place], or the hydrocodone as needed for the more severe pain and at night so he can get some rest you need to be off the medication by at least [address] or returning to work. Take several deep breaths every couple hours while you are awake. Follow-up with the L&I doctor or your regular provider the middle of this week. Sepsis Event Note - Evaluation Sepsis Screening Result: No Definite Risk - Focused Exam Vital Signs: Vital Signs Temp Pulse Resp BP Pulse Ox 09/21/19 16:01 37.1 C 90 18 103/67 98 Date Exam was Performed: 09/21/19 Time Exam was Performed: 20:10 - My Orders Last 24 Hours: My Active Orders 09/21/19 17:25 CULTURE URINE [RM] Stat 09/21/19 17:40 fentaNYL [Sublimaze] 50 mcg IVPUSH Q5M PRN 09/21/19 18:15 fentaNYL [Sublimaze] 50 mcg IVPUSH Q5M PRN - Assessment/Plan Last 24 Hours: My Active Orders 09/21/19 17:25 CULTURE URINE [RM] Stat 09/21/19 17:40 fentaNYL [Sublimaze] 50 mcg IVPUSH Q5M PRN 09/21/19 18:15 fentaNYL [Sublimaze] 50 mcg IVPUSH Q5M PRN
== END 2019-09-21 20:18 | disposition home or self-care (01) ==
LOC: JD.ED 15:35
DX: S20.212A Contusion of left front wall of thorax, initial encounter (principal); F17.200 Nicotine dependence, unspecified, uncomplicated; Z88.2 Allergy status to sulfonamides; W01.0XXA Fall on same level from slipping, tripping and stumbling without subsequent striking against object, initial encounter; Y93.01 Activity, walking, marching and hiking; Y99.0 Civilian activity done for income or pay
CPT/HCPCS: 71046; 71100; 81001; 81025; 87086; 96374; 96376; 99285; J3010; 99283

== ENCOUNTER 2020-04-06 22:48 | Emergency (ER) | payer BC, MEDICAID ==
[2020-04-06] MEDS ORDERED: Ondansetron 4 MG/2 ML SDV IVPUSH ONE (23:12)
[2020-04-06] MEDS ORDERED: Sodium Chloride 0.9% 1,000 ML IV ONE (23:12)
--- NOTE | 2020-04-06 23:18 | EDM.PDOC ---
ED HPI GENERAL MEDICAL PROBLEM - General Chief Complaint: Neurological Problem Stated Complaint: dizzy spells Time Seen by Provider: 04/06/20 23:00 Source of Information: Reports: Patient History Limitations: Reports: No Limitations - History of Present Illness INITIAL COMMENTS - FREE TEXT/NARRATIVE: Ms. Mcclelland is a 34-year-old woman who now presents the ED stating that she dev eloped lightheadedness, particularly when upright, yesterday, 04/05/2020. The initial episode lasted around 2 hours yesterday, then resolved, but recurred. It was worse today, particularly since 22:00 tonight. She has had mild nausea, but no vomiting. She states that she drank Gatorade and ate high- calorie foods, without improvement of her symptoms. She also complains of neck and head pain tonight, for which she took 3 tablets of Advil around 22:00. Here in the ED, the patient is found to be hemodynamically stable, afebrile, saturating 100% on room air. Other than the above symptoms, the patient denies having a recent fever, chills, sore throat, ear pain, nasal or sinus congestion, cough, dyspnea, chest pain, palpitations, nausea, vomiting, constipation, diarrhea, abdominal pain, urinary symptoms, recent weight gain or weight loss, recent bloody bowel movements or black bowel movements, recent joint aches, headaches, or rashes. The patient states that her LMP was more than 3 years ago. The patient does not currently have a PCP, but is hoping to see Dr. Qasim Pruitt. Headache Pain Score (Numeric/FACES): 5 - Related Data Allergies Allergy/AdvReac Type Severity Reaction Status Date / Time Sulfa (Sulfonamide Allergy Joint Pain Verified 04/06/20 22:58 Antibiotics) Home Meds: Home Meds . 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 Musculoskeletal History: Reports: Back Pain, Chronic (DDD) Psychiatric History: Reports: Addiction (history of drug-seeking behavior), Anxiety, Suicide Attempt Hematologic History: Reports: Anemia, Iron Deficiency - Past Surgical History GI Surgical History: Reports: Cholecystectomy (2011 or 2012), Other (See Below) (Exploratory laparoscopy) Neurological Surgical History: Reports: Lumbar Spine (fusion 04/12/2018) Musculoskeletal Surgical History: Reports: Carpal Tunnel Social & Family History - Family History Family Medical History: Noncontributory - Tobacco Use Smoking Status *Q: Former Smoker Years of Tobacco use: 15 Packs/Tins Daily: 0.3 Month/Year Tobacco Last Used: Quit 2016 Second Hand Smoke Exposure: No - Caffeine Use Caffeine Use: Reports: None - Alcohol Use Alcohol Use History: Yes Alcohol Use Frequency: Socially - Recreational Drug Use Recreational Drug Use: No - Living Situation & Occupation Living situation: Reports: Single, with Family (2 kids) Occupation: Employed ED ROS GENERAL - Review of Systems Review Of Systems: Comprehensive ROS is negative, except as noted in HPI. ED EXAM, GENERAL - Physical Exam Exam: See Below Exam Limited By: No Limitations General Appearance: Alert, WD/WN, No Apparent Distress Eye Exam: Bilateral Eye: EOMI, Normal Inspection Ears: Normal External Exam, Hearing Grossly Normal Nose: Normal Inspection Throat/Mouth: Normal Inspection, Normal Lips, Normal Voice, No Airway Compromise Head: Atraumatic, Normocephalic Neck: Normal Inspection, Full Range of Motion Respiratory/Chest: No Respiratory Distress, Lungs Clear, Normal Breath Sounds, No Accessory Muscle Use Cardiovascular: Normal Peripheral Pulses, Regular Rate, Rhythm, No Edema, No Gallop, No JVD, No Murmur, No Rub Peripheral Pulses: 3+: Radial (L), Radial (R) GI/Abdominal: Normal Bowel Sounds, Soft, Non-Tender, No Organomegaly, No Distention, No Abnormal Bruit, No Mass (Female) Exam: Deferred Rectal (Female) Exam: Deferred Back Exam: Normal Inspection, Full Range of Motion, NT Extremities: Normal Inspection, Normal Range of Motion, No Pedal Edema, Normal Capillary Refill Neurological: Alert, Oriented, Normal Cognition, No Motor/Sensory Deficits Psychiatric: Normal Affect Skin Exam: Warm, Dry, Intact, Normal Color, No Rash Course - Vital Signs Last Recorded V/S: Last Vital Signs Temp 36.3 C 04/06/20 22:54 Pulse 86 04/06/20 22:54 Resp 16 04/06/20 22:54 BP 126/80 04/06/20 22:54 Pulse Ox 100 04/06/20 22:54 Orthostatic Blood Pressure [ 122/78 Standing] Orthostatic Blood Pressure [ 114/74 Supine] - Orders/Labs/Meds Labs: Laboratory Tests 04/06/20 04/06/20 04/06/20 Range/Units 23:20 23:20 23:20 WBC 6.90 (3.98-10.04) K/mm3 RBC 4.40 (3.98-5.22) M/mm3 Hgb 13.5 (11.2-15.7) gm/dl Hct 41.5 (34.1-44.9) % MCV 94.3 D (79.4-94.8) fl MCH 30.7 (25.6-32.2) pg MCHC 32.5 (32.2-35.5) g/dl RDW Std Deviation 44.0 (36.4-46.3) fL Plt Count 281 (182-369) K/mm3 MPV 9.3 L (9.4-12.3) fl Neutrophils % (Manual) 53 (40-60) % Band Neutrophils % 0 (0-10) % Lymphocytes % (Manual) 39 (20-40) % Atypical Lymphs % 0 % Monocytes % (Manual) 7 (2-10) % Eosinophils % (Manual) 1 (0.7-5.8) % Basophils % (Manual) 0 L (0.1-1.2) Platelet Estimate Adequate Plt Morphology Comment Normal RBC Morph Comment Normal D-Dimer, Quantitative 0.28 (0.19-0.50) mg/L Sodium 142 (136-145) mEq/L Potassium 3.7 (3.5-5.1) mEq/L Chloride 105 (98-107) mEq/L Carbon Dioxide 27 (21-32) mEq/L Anion Gap 13.7 (5-15) BUN 10 (7-18) mg/dL Creatinine 1.2 H (0.55-1.02) mg/dL Est Cr Clr Drug Dosing 66.01 mL/min Estimated GFR (MDRD) 51 (>60) mL/min BUN/Creatinine Ratio 8.3 L (14-18) Glucose 116 H (74-106) mg/dL Calcium 8.3 L (8.5-10.1) mg/dL Magnesium 2.1 (1.8-2.4) mg/dl Total Bilirubin 0.2 (0.2-1.0) mg/dL AST 13 L (15-37) U/L ALT 19 (14-59) U/L Alkaline Phosphatase 59 (46-116) U/L Total Protein 6.9 (6.4-8.2) g/dl Albumin 3.6 (3.4-5.0) g/dl Globulin 3.3 gm/dL Albumin/Globulin Ratio 1.1 (1-2) HCG, Quant < 1.0 mIU/mL COVID-19 (RENATA) (NEGATIVE) 04/06/20 Range/Units 23:46 WBC (3.98-10.04) K/mm3 RBC (3.98-5.22) M/mm3 Hgb (11.2-15.7) gm/dl Hct (34.1-44.9) % MCV (79.4-94.8) fl MCH (25.6-32.2) pg MCHC (32.2-35.5) g/dl RDW Std Deviation (36.4-46.3) fL Plt Count (182-369) K/mm3 MPV (9.4-12.3) fl Neutrophils % (Manual) (40-60) % Band Neutrophils % (0-10) % Lymphocytes % (Manual) (20-40) % Atypical Lymphs % % Monocytes % (Manual) (2-10) % Eosinophils % (Manual) (0.7-5.8) % Basophils % (Manual) (0.1-1.2) Platelet Estimate Plt Morphology Comment RBC Morph Comment D-Dimer, Quantitative (0.19-0.50) mg/L Sodium (136-145) mEq/L Potassium (3.5-5.1) mEq/L Chloride (98-107) mEq/L Carbon Dioxide (21-32) mEq/L Anion Gap (5-15) BUN (7-18) mg/dL Creatinine (0.55-1.02) mg/dL Est Cr Clr Drug Dosing mL/min Estimated GFR (MDRD) (>60) mL/min BUN/Creatinine Ratio (14-18) Glucose (74-106) mg/dL Calcium (8.5-10.1) mg/dL Magnesium (1.8-2.4) mg/dl Total Bilirubin (0.2-1.0) mg/dL AST (15-37) U/L ALT (14-59) U/L Alkaline Phosphatase (46-116) U/L Total Protein (6.4-8.2) g/dl Albumin (3.4-5.0) g/dl Globulin gm/dL Albumin/Globulin Ratio (1-2) HCG, Quant mIU/mL COVID-19 (RENATA) Negative (NEGATIVE) Meds: Medications Discontinued Medications Generic Name Dose Route Start Last Admin Trade Name Susy PRN Reason Stop Dose Admin Sodium Chloride 1,000 mls @ 999 mls/hr 04/06/20 23:12 04/06/20 23:32 Normal Saline IV 04/07/20 00:12 999 mls/hr ONETIME ONE Administration Ondansetron HCl 4 mg 04/06/20 23:12 04/06/20 23:33 Zofran IVPUSH 04/06/20 23:13 4 mg ONETIME ONE Administration - Re-Assessments/Exams Free Text/Narrative Re-Assessment/Exam: 04/06/20 23:12 As above, the patient has had lightheadedness on and off since yesterday, 04/05/2020, worse today, along with mild nausea, and neck and head pain tonight, but no other symptoms. She is hemodynamically stable and afebrile, and her physical exam is completely benign. I have ordered a work-up that includes orthostatics, blood work, and a test for the SARS-CoV-2 virus. In the meantime, the patient will be given an IV fluid bolus and IV Zofran. 04/07/20 00:14 The patient is not orthostatic. 04/07/20 00:31 The patient's CBC is unremarkable. Her CMP is remarkable for a Cr lightly elevated at 1.2, but with a BUN normal at 10. Her blood glucose is slightly elevated at 116, with the remainder of her CMP being unremarkable. Her magnesium level is within normal limits at 2.1. Her D-dimer is within normal limits at 0.28. Her quantitative hCG is undetectably low. Her test for the SARS-CoV-2 virus is negative. 04/07/20 00:35 Test results discussed with the patient. As above, angelique's work-up is completely unremarkable, and does not explain the cause of her symptoms. I explained to the patient that while I cannot tell her why she is having the symptoms that she is having, I can tell her that they do not appear to be due to anything serious, given her negative work-up. I recommended that if her symptoms persist, that she follow-up with her PCP for further evaluation. The patient does not seem very satisfied with that answer, however, she is agreeable to being discharged. Departure - Departure Time of Disposition: 00:35 Disposition: Home, Self-Care 01 Condition: Good Clinical Impression: Lightheaded, Nausea - Discharge Information *PRESCRIPTION DRUG MONITORING PROGRAM REVIEWED*: Not Applicable *COPY OF PRESCRIPTION DRUG MONITORING REPORT IN PATIENT RM: Not Applicable Instructions: Nausea, Adult, Lccy-ow-[id number], Dizziness, [id number] Referrals: Qasim Conley MD [Primary Care Provider] - Forms: ED Department Discharge Additional Instructions: You were seen in the emergency room for lightheadedness, particularly when upright, on and off since yesterday, along with mild nausea. Work-up in the ER included blood work, positional blood pressure checks, and a test for the SARS-CoV-2 virus. Your entire work-up was unremarkable, and does not explain the cause of your symptoms. You are not dehydrated. You are not anemic. You are not . You do not have a blood clot in your lungs. You tested negative for the virus that causes COVID-19. We recommend that you stay adequately hydrated, and if your symptoms persist, please follow-up with your PCP, Dr. Qasim Pruitt, for further evaluation. If any other problems, please do not hesitate to return to the ER. Sepsis Event Note (ED) - Evaluation Sepsis Screening Result: No Definite Risk - Focused Exam Vital Signs: Vital Signs Temp Pulse Resp BP Pulse Ox 04/06/20 22:54 36.3 C 86 16 126/80 100
[2020-04-06 23:20] VITALS: BP 126/80; PULSE 86
== END 2020-04-07 00:46 | disposition home or self-care (01) ==
LOC: JD.ED 22:48
DX: R42 Dizziness and giddiness (principal); R11.0 Nausea; Z88.2 Allergy status to sulfonamides; Z87.891 Personal history of nicotine dependence; Z20.828 Contact with and (suspected) exposure to other viral communicable diseases
CPT/HCPCS: 36415; 80053; 83735; 84702; 85007; 85027; 85379; 87635; 96361; 96374; 99284; J2405; J7030; 99283; U0002

== ENCOUNTER 2020-04-07 18:57 | Emergency (ER) | payer MEDICAID ==
[2020-04-07 19:01] VITALS: BP 126/74; PULSE 70
--- NOTE | 2020-04-07 20:14 | EDM.PDOC ---
ED HPI GENERAL MEDICAL PROBLEM - General Chief Complaint: General Stated Complaint: DIZZY FACE AND HANDS TINGLING Time Seen by Provider: 04/07/20 19:56 Source of Information: Reports: Patient History Limitations: Reports: No Limitations - History of Present Illness INITIAL COMMENTS - FREE TEXT/NARRATIVE: Ms. Mcclelland is a 34-year-old woman with a past medical history significant for untreated anxiety disorder, who was seen by me in this ED late last night for complaint at that time of lightheadedness, particularly when upright, that developed on 04/05/2020. Her lightheadedness had been coming and going, but was worse last night. She had experienced mild nausea without vomiting. Her symptoms did not improve with Gatorade or high calorie foods. She was found to be hemodynamically stable, afebrile, saturating 100% on room air. Her physical exam was unremarkable. Work-up included orthostatics, a CBC, CMP, magnesium level, D-dimer, quantitative hCG, and a swab for the SARS-CoV-2 virus. Her entire work-up was unremarkable. I recommended that she follow-up with her PCP for further evaluation if her symptoms persisted. The patient tells me that her lightheadedness persisted, and she subsequently developed tingling and numbness to her hands and face. She also reports the sensation of walking on rubber legs. She denies chest pain or palpitations, dyspnea, throat tightness, or abdominal pain. She states that she went to the walk-in clinic this evening, however, they were about ready to close, therefore they directed her here. Here in the ED, the patient is again found to be hemodynamically stable, afebrile, saturating 100% on room air. She appears to be quite anxious, and is tearful. Other than the above symptoms, the patient denies having a recent fever, chills, sore throat, ear pain, nasal or sinus congestion, cough, dyspnea, chest pain, palpitations, vomiting, constipation, diarrhea, abdominal pain, urinary symptoms, recent weight gain or weight loss, recent bloody bowel movements or black bowel movements, recent joint aches, headaches, or rashes. The patient does not have a PCP, but is hoping to see Dr. Qasim Pruitt. Bilateral Hip Pain Score (Numeric/FACES): 6 - Related Data Allergies Allergy/AdvReac Type Severity Reaction Status Date / Time Sulfa (Sulfonamide AdvReac Joint Pain Verified 04/07/20 19:01 Antibiotics) Home Meds: Home Meds . 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: Reports: Spontaneous Musculoskeletal History: Reports: Back Pain, Chronic (DDD) Psychiatric History: Reports: Addiction (history of drug-seeking behavior), Anxiety (untreated), Suicide Attempt - Past Surgical History GI Surgical History: Reports: Cholecystectomy (2011 or 2012), Other (See Below) (Exploratory laparoscopy) Neurological Surgical History: Reports: Lumbar Spine (fusion 04/12/2018) Musculoskeletal Surgical History: Reports: Carpal Tunnel Social & Family History - Family History Family Medical History: Noncontributory - Tobacco Use Smoking Status *Q: Former Smoker Years of Tobacco use: 15 Packs/Tins Daily: 0.3 Month/Year Tobacco Last Used: Quit 2016 - Caffeine Use Caffeine Use: Reports: Coffee - Alcohol Use Alcohol Use History: Yes Alcohol Use Frequency: Socially - Recreational Drug Use Recreational Drug Use: No - Living Situation & Occupation Living situation: Reports: Single, with Family (2 kids) Occupation: Employed ([employer]) ED ROS GENERAL - Review of Systems Review Of Systems: Comprehensive ROS is negative, except as noted in HPI. ED EXAM, GENERAL - Physical Exam Exam: See Below Exam Limited By: No Limitations General Appearance: Alert, Anxious (tearful), Thin Eye Exam: Bilateral Eye: EOMI, Normal Inspection Ears: Normal External Exam, Hearing Grossly Normal Nose: Normal Inspection Throat/Mouth: Normal Inspection, Normal Voice, No Airway Compromise, Other (wearing a surgical mask) Head: Atraumatic, Normocephalic Neck: Normal Inspection, Full Range of Motion Respiratory/Chest: No Respiratory Distress, Lungs Clear, Normal Breath Sounds, No Accessory Muscle Use Cardiovascular: Normal Peripheral Pulses, Regular Rate, Rhythm, No Edema, No Gallop, No JVD, No Murmur, No Rub Peripheral Pulses: 3+: Radial (L), Radial (R) GI/Abdominal: Normal Bowel Sounds, Soft, Non-Tender, No Organomegaly, No Distention, No Abnormal Bruit, No Mass (Female) Exam: Deferred Rectal (Female) Exam: Deferred Back Exam: Normal Inspection, Full Range of Motion, NT Extremities: Normal Inspection, Normal Range of Motion, No Pedal Edema, Normal Capillary Refill Neurological: Alert, Oriented, Normal Cognition, No Motor/Sensory Deficits Psychiatric: Anxious Skin Exam: Warm, Dry, Intact, Normal Color, No Rash EKG INTERPRETATION EKG Date: 04/07/20 Time: 20:22 Rhythm: NSR (with sinus arrhythmia) Rate (Beats/Min): 70 Zillah: Normal P-Wave: Present QRS: Other (Nonspecific intraventricular conduction delay) ST-T: Normal QT: Normal Comparison: No Change (08/04/2018) Course - Vital Signs Last Recorded V/S: Last Vital Signs Temp 36.2 C 04/07/20 18:58 Pulse 70 04/07/20 18:58 Resp 16 04/07/20 18:58 BP 126/74 04/07/20 18:58 Pulse Ox 100 04/07/20 18:58 Orthostatic Blood Pressure [ 111/88 Standing] Orthostatic Blood Pressure [ 112/80 Supine] - Orders/Labs/Meds Orders: Active Orders 24 hr Category Date Time Status Chest 2V [CR] Stat Exams 04/07/20 20:01 Taken Labs: Laboratory Tests 04/07/20 04/07/20 Range/Units 20:15 20:17 Puncture Site Rt radial ABG pH 7.41 (7.35-7.45) ABG pCO2 35.5 (35.0-45.0) mmHg ABG pO2 83.0 (80.0-100.0) mmHg ABG HCO3 22.2 (22.0-26.0) meq/L ABG O2 Saturation 97.8 H (96.0-97.0) % ABG Base Excess -1.3 (-2-2.0) Davis Test Positive A-a Gradient 22 mmHg O2 Delivery Device Room air Oxygen Flow Rate 21.0 FiO2 0.00 L (21.00-100.00) % Troponin I < 0.017 (0.00-0.056) ng/mL TSH 3rd Generation 0.615 (0.358-3.74) uIU/mL - Re-Assessments/Exams Free Text/Narrative Re-Assessment/Exam: 04/07/20 20:09 As above, the patient has been experiencing progressively worsening symptoms of lightheadedness, particularly when upright, since 04/05/2020, and has now developed tingling of her hands and face and the sensation of walking on rubber legs. Her oxygen saturation is 100% on room air and appears to be quite anxious and tearful. Clearly, the patient is exhibiting symptoms of anxiety, however, in my experience, patients with anxiety have poor insight as to their own condition, and unless I provide objective evidence of the absence of any other cause, the patient will not believe that diagnosis. I have therefore ordered a work-up that includes blood work, an ABG, a urinalysis, a urine test, a chest x-ray, orthostatics, and an ECG. I have not reordered a CBC, CMP, magnesium level, or D-dimer, as these were just done late last night/early this morning, and were entirely unremarkable. 04/07/20 21:10 Notified by Eliza CUI that the patient refused the chest x-ray and wanted to leave. I went and talked with her. She is still tearful and appears anxious. She stated that a chest x-ray is not necessary, because there is nothing wrong with her chest, and that the only reason that I ordered a chest x-ray was to cost her money. I reiterated what I had told her previously, that I believe the condition that she is suffering from is one seen commonly in the ED, but that I am just running some tests to make sure that nothing else more serious is occurring. I agree that her chest x-ray, if she allowed us to take one, would likely be unremarkable, however, the patient remains unconvinced, and continued to prepare to leave. 04/07/20 21:16 Notified by America CUI that the patient is now willing to stay to undergo the tests that I ordered, including the chest x-ray. 04/07/20 21:16 Two-view chest radiograph appears to be grossly normal. The cardiac silhouette is within normal limits. No pulmonary vascular congestion. No pleural effusions. No focal infiltrate. No pneumothorax. Formal read per the Radiologist pending. The patient is not orthostatic. Her troponin is undetectably low. Her TSH is within normal limits at 0.615. Her ABG shows no acid-base disturbances. Notified by America CUI that the patient is not going to be providing a urine sample. 04/07/20 22:05 Test results discussed with the patient. I explained that at triage, her oxygen saturation was 100%, indicating some degree of hyperventilation. I explained that hyperventilation is usually caused by anxiety, but that there is no test for anxiety. I explained that hyperventilation can also be caused by a variety of medical conditions, such as a PE, metabolic acidosis, DKA, uremia, hypocalcemia, hypoglycemia, hyperthyroidism, liver failure, severe anemia, sepsis, acute coronary event, pneumothorax, pneumonia, dysrhythmias, , etc., and that the tests that were run today, in combination with the tests that were run last night, were done to rule out those conditions. With the exception of ruling out a UTI, of which I have low suspicion, but which I cannot disprove as the patient did not give us a urine sample, her work-up tonight was unremarkable. I would have to conclude then, by a process of elimination, that her symptoms are due to anxiety. I reassured her that while unpleasant, anxiety and hyperventilation are not dangerous, and that it is a very common presentation to the ED. I explained that we do not prescribe antianxiety medications in the ED, as they typically take 3 to 4 weeks to take effect, and during that time the patient would need to be monitored for side effects, and the dosage may need to be adjusted. That is not something that can be performed in the ED, therefore I recommended that she follow-up with her PCP to discuss treatment options. At that time, the patient stood up and said "So it's stress. I already knew that. I already had that plan. Thank you for wasting 10 hours of my fucking time". She then left the ED without waiting for discharge papers. Departure - Departure Time of Disposition: 21:13 Disposition: Eloped 07 Condition: Good Clinical Impression: Anxiety disorder - Discharge Information *PRESCRIPTION DRUG MONITORING PROGRAM REVIEWED*: Not Applicable *COPY OF PRESCRIPTION DRUG MONITORING REPORT IN PATIENT RM: Not Applicable Instructions: Living With Anxiety Referrals: Qasim Conley MD [Primary Care Provider] - Forms: ED Department Discharge Sepsis Event Note (ED) - Evaluation Sepsis Screening Result: No Definite Risk - Focused Exam Vital Signs: Vital Signs Temp Pulse Resp BP Pulse Ox 04/07/20 18:58 36.2 C 70 16 126/74 100 - My Orders Last 24 Hours: My Active Orders 04/07/20 20:01 Chest 2V [CR] Stat - Assessment/Plan Last 24 Hours: My Active Orders 04/07/20 20:01 Chest 2V [CR] Stat
--- NOTE | 2020-04-08 06:24 | CR ---
Chest: 2 views of the chest were obtained. Comparison: Prior chest x-ray of 09/21/19. Heart size and mediastinum are normal. Lungs are clear with no acute parenchymal change. Bony structures are unremarkable. Impression: 1. Nothing acute is seen on 2 view chest x-ray. Diagnostic code #1 This report was dictated in MDT
== END 2020-04-07 22:12 | disposition left against medical advice (07) ==
LOC: JD.ED 18:57
DX: F41.9 Anxiety disorder, unspecified (principal); I49.9 Cardiac arrhythmia, unspecified; Z88.2 Allergy status to sulfonamides; Z87.891 Personal history of nicotine dependence
CPT/HCPCS: 36415; 36600; 71046; 71046-26; 82803; 84443; 84484; 93005; 93010; 99282; 99284-25

== ENCOUNTER 2021-01-26 18:50 | Emergency (ER) | payer MEDICAID ==
[2021-01-26 19:32] VITALS: BP 97/47; PULSE 71
--- NOTE | 2021-01-26 19:59 | EDM.PDOC ---
ED HPI GENERAL MEDICAL PROBLEM - General Chief Complaint: NCQA SPECIALIST Problem Stated Complaint: 15WKS PG VOMITING Time Seen by Provider: 01/26/21 19:58 - History of Present Illness INITIAL COMMENTS - FREE TEXT/NARRATIVE: 35-year-old female at 15 weeks is having significant nausea vomiting. This nausea vomiting going on for several weeks. She is out of Zofran. She is using a B6 naomi combination that is no longer working. She is 4 para 3 now 15 weeks. She has had nausea and vomiting Primus throughout the but has been really aggravated the last several weeks. Patient was using Zofran but she ran out a couple weeks ago. She is not have any spotting and occasional cramp. She is not aware of any fevers or chills. Left Flank Pain Score (Numeric/FACES): 4 - Related Data Allergies Allergy/AdvReac Type Severity Reaction Status Date / Time Sulfa (Sulfonamide AdvReac Joint Pain Verified 01/26/21 19:28 Antibiotics) Home Meds: Home Meds Ondansetron [Zofran ODT] 1 tab PO Q6H PRN 01/26/21 [History] Ondansetron [Zofran ODT] 4 mg PO Q6H PRN #20 tab.dis 01/26/21 [Rx] Potassium Chloride [Klor-Con 10] 10 meq PO BID #6 tab.er 01/26/21 [Rx] No122/Iron/Folic Acid [ Multi Tablet] 1 tab PO DAILY 01/26/21 [History] cephALEXin [Keflex] 500 mg PO Q8H #15 cap 01/26/21 [Rx] Past Medical History HEENT History: Reports: None Cardiovascular History: Reports: None Other Cardiovascular History: anemic Respiratory History: Reports: None Other Respiratory History: current smoker Gastrointestinal History: Reports: Cholelithiasis Genitourinary History: Reports: UTI, Recurrent, Other (See Below) Other Genitourinary History: Recurrent UTIs, kidney infections, possible stones- was directed to see urology after delivery per pt. NCQA SPECIALIST History: Reports: Spontaneous Other NCQA SPECIALIST History: laparoscopic procedure for endometriosis Musculoskeletal History: Reports: Back Pain, Chronic Other Musculoskeletal History: L5 degenerative disk Psychiatric History: Reports: Addiction, Anxiety, Suicide Attempt Other Psychiatric History: increased stress Endocrine/Metabolic History: Reports: None Hematologic History: Reports: Anemia, Iron Deficiency Immunologic History: Reports: None Oncologic (Cancer) History: Reports: None Dermatologic History: Reports: None - Infectious Disease History Infectious Disease History: Reports: Chicken Pox - Past Surgical History Head Surgeries/Procedures: Reports: None GI Surgical History: Reports: Cholecystectomy, Other (See Below) Female Surgical History: Reports: Other (See Below) Other Female Surgeries/Procedures: laproscopic endometrial surgeries, explaoratory. Neurological Surgical History: Reports: Lumbar Spine Musculoskeletal Surgical History: Reports: Carpal Tunnel Other Musculoskeletal Surgeries/Procedures:: spinal fusion Social & Family History - Family History Family Medical History: No Pertinent Family History - Tobacco Use Tobacco Use Status *Q: Former Tobacco User Used Tobacco, but Quit: Yes Month/Year Tobacco Last Used: 07/2017 - Caffeine Use Caffeine Use: Reports: Coffee - Recreational Drug Use Recreational Drug Use: No - Living Situation & Occupation Living situation: Reports: Single, with Family (2 kids) Occupation: Employed ([employer]) ED ROS GENERAL - Review of Systems Review Of Systems: See Below Constitutional: Reports: Weakness, Fatigue. Denies: No Symptoms HEENT: Reports: No Symptoms Respiratory: Reports: No Symptoms, Cough GI/Abdominal: Reports: Nausea, Vomiting. Denies: Abdominal Pain, Diarrhea : Reports: No Symptoms, Urinary Retention Skin: Reports: No Symptoms Neurological: Reports: No Symptoms Psychiatric: Reports: No Symptoms Hematologic/Lymphatic: Reports: No Symptoms Immunologic: Reports: No Symptoms ED EXAM, GENERAL - Physical Exam Exam: See Below Exam Limited By: No Limitations General Appearance: Alert, No Apparent Distress Eye Exam: Bilateral Eye: Normal Inspection Ears: Normal External Exam, Normal Canal, Hearing Grossly Normal, Normal TMs Nose: Normal Inspection, Normal Mucosa, No Blood Throat/Mouth: Normal Inspection, Normal Lips, Normal Teeth, Normal Gums, Normal Oropharynx, Normal Voice, No Airway Compromise Head: Atraumatic, Normocephalic Respiratory/Chest: No Respiratory Distress, Lungs Clear, Normal Breath Sounds Cardiovascular: Regular Rate, Rhythm, No Edema, No Murmur GI/Abdominal: Normal Bowel Sounds, Soft, Non-Tender, Other ( heart tones the audible by Doppler at 150 bpm) Back Exam: Normal Inspection. No: CVA Tenderness (L), CVA Tenderness (R) Extremities: Normal Inspection, Normal Range of Motion, Non-Tender Neurological: Alert, Oriented, Normal Cognition Psychiatric: Normal Affect, Normal Mood Course - Vital Signs Last Recorded V/S: Last Vital Signs Temp 36.9 C 01/26/21 19:30 Pulse 71 01/26/21 19:30 Resp 18 01/26/21 19:30 BP 97/47 L 01/26/21 19:30 Pulse Ox 100 01/26/21 19:30 - Orders/Labs/Meds Orders: Active Orders 24 hr Category Date Time Status CULTURE URINE [MREF] Stat Lab 01/26/21 20:20 Received Labs: Laboratory Tests 01/26/21 01/26/21 01/26/21 Range/Units 20:20 20:25 20:25 WBC 8.18 (3.98-10.04) K/mm3 RBC 3.66 L (3.98-5.22) M/mm3 Hgb 11.3 (11.2-15.7) gm/dl Hct 33.2 L (34.1-44.9) % MCV 90.7 (79.4-94.8) fl MCH 30.9 (25.6-32.2) pg MCHC 34.0 (32.2-35.5) g/dl RDW Std Deviation 41.4 (36.4-46.3) fL Plt Count 271 (182-369) K/mm3 MPV 8.6 L (9.4-12.3) fl Neut % (Auto) 65.5 (34.0-71.1) % Lymph % (Auto) 29.1 (19.3-51.7) % [place] % (Auto) 4.6 L (4.7-12.5) % Eos % (Auto) 0.6 L (0.7-5.8) Baso % (Auto) 0.2 (0.1-1.2) % Neut # (Auto) 5.35 (1.56-6.13) K/mm3 Lymph # (Auto) 2.38 (1.18-3.74) K/mm3 [place] # (Auto) 0.38 H (0.24-0.36) K/mm3 Eos # (Auto) 0.05 (0.04-0.36) K/mm3 Baso # (Auto) 0.02 (0.01-0.08) K/mm3 Sodium 139 (136-145) mEq/L Potassium 3.4 L (3.5-5.1) mEq/L Chloride 103 (98-107) mEq/L Carbon Dioxide 24 (21-32) mEq/L Anion Gap 15.4 H (5-15) BUN 7 (7-18) mg/dL Creatinine 0.8 (0.55-1.02) mg/dL Est Cr Clr Drug Dosing 98.07 mL/min Estimated GFR (MDRD) > 60 (>60) mL/min BUN/Creatinine Ratio 8.8 L (14-18) Glucose 81 (70-99) mg/dL Calcium 8.0 L (8.5-10.1) mg/dL Total Bilirubin 0.4 (0.2-1.0) mg/dL AST 14 L (15-37) U/L ALT 17 (14-59) U/L Alkaline Phosphatase 46 (46-116) U/L Total Protein 6.5 (6.4-8.2) g/dl Albumin 3.3 L (3.4-5.0) g/dl Globulin 3.2 gm/dL Albumin/Globulin Ratio 1.0 (1-2) Urine Color Yellow (Yellow) Urine Appearance Slt cloudy H (Clear) Urine pH 6.5 (5.0-8.0) Ur Specific [place] 1.025 (1.005-1.030) Urine Protein Negative (Negative) Urine Glucose (UA) Negative (Negative) Urine Ketones 2+ H (Negative) Urine Occult Blood Negative (Negative) Urine Nitrite Negative (Negative) Urine Bilirubin Negative (Negative) Urine Urobilinogen 0.2 (0.2-1.0) Ur Leukocyte Esterase 1+ H (Negative) Urine RBC 0-5 (0-5) /hpf Urine WBC 5-10 H (0-5) /hpf Ur Squamous Epith Cells 5-10 H (0-5) /hpf Urine Bacteria Moderate H (FEW) /hpf Urine Mucus Many H (FEW) /hpf Meds: Medications Discontinued Medications Generic Name Dose Route Start Last Admin Trade Name Freq PRN Reason Stop Dose Admin Lactated Ringer's 1,000 mls @ 999 mls/hr 01/26/21 20:08 01/26/21 20:27 Ringers, Lactated IV 01/26/21 21:08 999 mls/hr .BOLUS ONE Administration Ondansetron HCl 4 mg 01/26/21 20:08 01/26/21 20:27 Ondansetron 4 Mg Tab.Dis PO 01/26/21 20:09 4 mg ONETIME ONE Administration - Re-Assessments/Exams Free Text/Narrative Re-Assessment/Exam: 01/26/21 21:40 Patient is doing much better after liter of fluids and some Zofran ODT. Her urine is modestly suggestive of UTI could be a contaminant with further discussion she is having some intermittent symptoms so we will go ahead and treat awaiting culture patient be started on Keflex 500 mg 3 times a day for 5 days. She is doing well on Zofran I recommended she use Zofran 4 times a day through tomorrow then may be decrease it to 8 3 times a day for a couple of days and then to as needed. Her potassium is a little low tomorrow we will start her on Klor-Con 10 mEq twice daily for 3 days. She has follow-up with Dr. Adhikari next week. Departure - Departure Time of Disposition: 21:41 Disposition: Home, Self-Care 01 Clinical Impression: Nausea and vomiting during , UTI (urinary tract infection), Hypokal emia - Discharge Information Referrals: Chacorta Adhikari MD [Primary Care Provider] - Forms: ED Department Discharge Additional Instructions: Return to the emergency room with any questions problems or worsening symptoms. Use the Zofran 4 times daily through tomorrow and then decrease it to 3 times daily for at least another day and then see how you do on an as-needed basis. I have given you 10 from the machine out in the waiting room and a prescription for [facility]. You appear to have urinary tract infection you have been started on cephalexin, this is an antibiotic take 1 3 times a day until all gone this is also been sent to [place] [facility]. Your potassium is a little low. I have started you on Klor-Con 10 mEq take 1 twice daily starting in the morning. Follow-up with Dr. Adhikari next week as scheduled Sepsis Event Note (ED) - Evaluation Sepsis Screening Result: No Definite Risk - Focused Exam Vital Signs: Vital Signs Temp Pulse Resp BP Pulse Ox 01/26/21 19:30 36.9 C 71 18 97/47 L 100 - My Orders Last 24 Hours: My Active Orders 01/26/21 20:20 CULTURE URINE [MREF] Stat - Assessment/Plan Last 24 Hours: My Active Orders 01/26/21 20:20 CULTURE URINE [MREF] Stat
[2021-01-26] MEDS ORDERED: Lactated Ringers 1,000 ML IV ONE (20:08)
[2021-01-26] MEDS ORDERED: Ondansetron 4 MG Tab.DIS PO ONE ×2 (20:08→21:52)
[2021-01-26] MEDS ORDERED: Cephalexin 500 MG Cap PO ONE (21:31)
== END 2021-01-26 22:35 | disposition home or self-care (01) ==
LOC: JD.ED 18:50
DX: O21.9 Vomiting of pregnancy, unspecified (principal); O23.42 Unspecified infection of urinary tract in pregnancy, second trimester; O99.284 Endocrine, nutritional and metabolic diseases complicating childbirth; E87.6 Hypokalemia; Z88.2 Allergy status to sulfonamides; Z87.891 Personal history of nicotine dependence; Z3A.15 15 weeks gestation of pregnancy
CPT/HCPCS: 36415; 80053; 81001; 85025; 87086; 99284; A9270; J7120; 99283

== ENCOUNTER 2021-07-12 19:14 | Inpatient (IN) | payer MEDICAID ==
[2021-07-12] MEDS ORDERED: Sodium Chloride 0.9% 10 ML Syringe FLUSH PRN (21:39)
[2021-07-12] MEDS ORDERED: Nalbuphine 10 MG/1 ML Vial IVPUSH PRN (21:39)
[2021-07-12] MEDS ORDERED: Oxytocin/Lactated Ringers 10 UNIT/1,000 ML BAG IV SCH ×2 (21:45)
[2021-07-12] MEDS: Lactated Ringers 1,000 ML IV SCH ×2 (22:00→22:52)
--- NOTE | 2021-07-12 22:11 | PCM.LDHP ---
L&D History of Present Illness - General Date of Service: 07/12/21 Admit Problem/Dx: Patient Status Order with Admit Dx/Problem 07/12/21 19:27 Patient Status [ADT] Routine Kaycee is a 35-year-old 5 para 2-1-0-1 3 07/12/21 21:40 Patient Status [ADT] Routine Admission Diagnosis/Problem Admission Diagnosis/Problem 07/12/21 21:59 Kaycee is a 35-year-old 5 para 2-1-1-3 female presently at 37-6/7 weeks gestational age with an TALAT of 07/27/2021 admitted for active labor and progressive cervical dilation to 4 cm, 85% effaced, -3 station, anterior, soft, cephalic presentation. Source of Information: Patient History Limitations: Reports: No Limitations - History of Present Illness Introduction:: Kaycee is a 35-year-old 5 para 2-1-1-3 female presently at 37-6/7 weeks gestational age with an TALAT of 07/27/2021 admitted for active labor and progressive cervical dilation to 4 cm, 85% effaced, -3 station, anterior, soft, cephalic presentation. Patient was seen earlier in clinic at which time she has a tight 3 cm. Began mariana shortly thereafter and now has progressed. She is mariana every 3 minutes. Mild to moderate in nature. heart tones are reassuring. 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 Patient had normal menarche at approximately 12-13 years of age. Cycles regular. LMP 10/20/2020 was relatively certain and is upon which the dates are based. She had 3 ultrasounds during the course of the all were consistent with her LMP dating. Previous obstetric history: 1. Male infant born 04/09/2011 at 39 weeks gestational age15 hours of labor6 pounds 0 ouncesNS[place]ural[place] in [place], [place]. Child's name is Jaylan. 2. Miscarriage 09/21/2011 at 6 weeks gestation. Passed naturally 3. Female born 08/17/2013 at 36 weeks gestational age after 8 hours of labor7 pounds 1 [place]. Child's name is Margaret. 4. Female born 10/10/2017 at 37-3/7 weeks gestational age after 12 hours labor6 pounds 1 ounceNSVDepidural [facility] Xiomara's name is Cameron. Patient denies any STIs. Abnormal Pap smears. history: Patient's initial visit was at 10-2/7 weeks gestational age. She was seen on a very regular basis throughout the course. Her weight gain was from 141 to 155 pounds 4.14 pound increase. Fundal height growth was appropriate. Vital signs including blood pressure was stable throughout the course. Patient had Covid in April 2021. No resi dual effects at this time. She is group B strep negative. Patient had a remote history of genital HSV has been started on prophylactic acyclovir at 36 weeks. She continues this at 400 mg p.o. 3 times daily for prophylaxis. Patient declined prequel noninvasive screen. She plans to breast-feed. She is interested in epidural for analgesia and labor. Patient received her Tdap on 06/14/2021. She is rubella immune. Pneumococcal immunization was given in 2016. Laboratory testing in : Blood is a be positive with a negative antibody screen. First hemoglobin was 12.3 g/dL. Platelets 294,000. Patient is rubella immune. RPR was nonreactive. Urine culture was negative. Hepatitis B surface antigen and HIV assays were both negative. Chlamydia, gonorrhea and HCV antibody testing were all negative. Second trimester laboratory testing showed hemoglobin 12.0 g/dL. Platelets were 288,000 and diabetes screen was 90. Group B strep screen was negative. Past medical history: 1. x4 2. Miscarriage x1 Past surgical history: 1. Laparoscopy age 17 for pelvic pain 2. Spinal fusion 2016 3. Laparoscopic cholecystectomy Family history: Mother is alive and well. Father is alive history of drug addiction. Had a history of stage IV esophageal cancer 5 brothers sister alive and well. One brother does have autism. Maternal grandmother is alive and well. Has adult onset diabetes. Maternal grandfather is secondary prostate cancer. Paternal grandmother with a history of cirrhosis now . Paternal grandfather secondary to mesothelioma. No bleeding, clotting, anesthesia, related problems are noted in the family. Social history: Patient is single. 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 She does not use any significance alcohol, drugs or tobacco. Her domestic partner is Dany Umaña. They live in [facility]. Review of systems: In general patient has no complaints. She does feel contractions that are progressive in nature. She has had some bloody show. She denies any leakage of fluid. Baby has been active. Skin: Negative Lungs: No infectious symptoms or shortness of breath Cardiovascular: No chest pain or exercise intolerance Breasts: No lumps, changes in size, pain, dimpling, discharge or axillary or supraclavicular concerns. GI: Negative : Cervix as per HPI. Musculoskeletal: Negative Neurological: Negative In general the patient is well-developed, well-nourished, pleasant female of stated age in no acute distress. Skin is warm dry without lesions. HEENT, neck and back within normal limits. Lungs are clear with good breath sounds in all lung saravia. Cardiovascular exam shows regular and rhythm without murmurs. Breast exam done at first visit was normal. Is not repeated at this time. Patient does plan to breast-feed. Abdomen is gravid with last fundal height in clinic at approximately 37 cm. Baby in vertex presentation by Delio maneuvers. Genital per digital exam shows an enlarged uterus. Cervix as described above. Bag yaens intact. Extremities and neurological exam are grossly within normal limits. - Related Data Allergies/Adverse Reactions: Allergies Allergy/AdvReac Type Severity Reaction Status Date / Time Sulfa (Sulfonamide AdvReac Joint Pain Verified 07/12/21 19:27 Antibiotics) Home Medications: Home Meds Ondansetron [Zofran ODT] 1 tab PO Q6H PRN 01/26/21 [History] Ondansetron [Zofran ODT] 4 mg PO Q6H PRN #20 tab.dis 01/26/21 [Rx] Potassium Chloride [Klor-Con 10] 10 meq PO BID #6 tab.er 01/26/21 [Rx] No122/Iron/Folic Acid [ Multi Tablet] 1 tab PO DAILY 01/26/21 [History] cephALEXin [Keflex] 500 mg PO Q8H #15 cap 01/26/21 [Rx] Past Medical History HEENT History: Reports: None Cardiovascular History: Reports: None Other Cardiovascular History: anemic Respiratory History: Reports: None Other Respiratory History: current smoker Gastrointestinal History: Reports: Cholelithiasis Genitourinary History: Reports: UTI, Recurrent, Other (See Below) Other Genitourinary History: Recurrent UTIs, kidney infections, possible stones- was directed to see urology after delivery per pt. 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 History: Reports: Spontaneous Other OB/BYN History: laparoscopic procedure for endometriosis Musculoskeletal History: Reports: Back Pain, Chronic Other Musculoskeletal History: L5 degenerative disk Psychiatric History: Reports: Addiction, Anxiety, Suicide Attempt Other Psychiatric History: increased stress Endocrine/Metabolic History: Reports: None Hematologic History: Reports: Anemia, Iron Deficiency Immunologic History: Reports: None Oncologic (Cancer) History: Reports: None Dermatologic History: Reports: None - Infectious Disease History Infectious Disease History: Reports: Chicken Pox - Past Surgical History Head Surgeries/Procedures: Reports: None GI Surgical History: Reports: Cholecystectomy, Other (See Below) Female Surgical History: Reports: Other (See Below) Other Female Surgeries/Procedures: laproscopic endometrial surgeries, explaoratory. Neurological Surgical History: Reports: Lumbar Spine Musculoskeletal Surgical History: Reports: Carpal Tunnel Other Musculoskeletal Surgeries/Procedures:: spinal fusion Social & Family History - Family History Family Medical History: No Pertinent Family History - Caffeine Use Caffeine Use: Reports: Coffee - Living Situation & Occupation Living situation: Reports: Single, with Family (2 kids) Occupation: Employed ([employer]) H&P Review of Systems - Review of Systems: Review Of Systems: See Below L&D Exam - Exam Exam: See Below - Vital Signs Weight: 71.214 kg - Problem List (1) Active labor SNOMED Code(s): 527607318 ICD Code: [id number] - Status: Acute Current Visit: Yes (2) 37 weeks gestation of SNOMED Code(s): 90424496 ICD Code: Z3A.37 - 37 WEEKS GESTATION OF Status: Acute Current Visit: No Problem List Initiated/Reviewed/Updated: Yes Orders Last 24hrs: Active Orders 24 hr Category Date Time Status Patient Status [ADT] Routine ADT 07/12/21 21:40 Active Activity as Tolerated [RC] PFP Care 07/12/21 21:39 Active Communication Order [RC] ASDIRECTED Care 07/12/21 21:39 Active Heart Tones [RC] ASDIRECTED Care 07/12/21 21:40 Active Non Stress Test [RC] PER UNIT ROUTINE Care 07/12/21 19:27 Active Notify Provider [RC] PFP Care 07/12/21 21:39 Active Notify Provider [RC] PRN Care 07/12/21 21:39 Active Peripheral IV Care [RC] . DIRECTED Care 07/12/21 21:40 Active Vital Signs [RC] PER UNIT ROUTINE Care 07/12/21 19:27 Active Regular Diet [DIET] Diet 07/12/21 Breakfast Active CBC WITH AUTO DIFF [HEME] Stat Lab 07/12/21 21:50 Received RAPID PLASMA REAGIN,RPR [CHEM] Routine Lab 07/12/21 21:50 Received TYPE AND SCREEN [BBK] Stat Lab 07/12/21 21:50 Received Lactated Ringers [Ringers, Lactated] 1,000 ml Med 07/12/21 21:45 Active IV ASDIRECTED Nalbuphine [Nubain] Med 07/12/21 21:39 Active 10 mg IVPUSH Q2H PRN Oxytocin/Lactated Ringers [Pitocin in LR 10 Units/1,000 Med 07/12/21 21:45 Active ML] 10 unit in 1,000 ml IV .CONTINUOUS Oxytocin/Lactated Ringers [Pitocin in LR 10 Units/1,000 Med 07/12/21 21:45 Active ML] 10 unit in 1,000 ml IV TITRATE Sodium Chloride 0.9% [Saline Flush] Med 07/12/21 21:39 Active 10 ml FLUSH ASDIRECTED PRN Electronic Heart Tones Ext w TOCO [WOMSER] Oth 07/12/21 21:39 Ordered Routine Electronic Heart Tones Internal [WOMSER] Per Unit Oth 07/12/21 21:39 Ordered Routine Peripheral IV Insertion Adult [OM.PC] Routine Oth 07/12/21 21:39 Ordered Resuscitation Status Routine Resus Stat 07/12/21 19:27 Ordered Medication Orders Lactated Ringer's (Ringers, Lactated) 1,000 mls @ 100 mls/hr IV ASDIRECTED JARVIS Oxytocin/Lactated Ringer's (Pitocin In Lr 10 Units/1,000 Ml) 10 unit in 1,000 mls @ 12 mls/hr IV TITRATE JARVIS; Protocol Oxytocin/Lactated Ringer's (Pitocin In Lr 10 Units/1,000 Ml) 10 unit in 1,000 mls @ 100 mls/hr IV .CONTINUOUS JARVIS Nalbuphine HCl (Nalbuphine 10 Mg/1 Ml Vial) 10 mg IVPUSH Q2H PRN PRN Reason: Pain Sodium Chloride (Sodium Chloride 0.9% 10 Ml Syringe) 10 ml FLUSH ASDIRECTED PRN PRN Reason: Keep Vein Open Assessment/Plan Comment:: 1. Kaycee is a 35-year-old 5 para 2-1-1-3 female presently at 37-6/7 weeks gestational age with an TALAT of 07/27/2021 admitted for active labor and progressive cervical dilation to 4 cm, 85% effaced, -3 station, anterior, soft, cephalic presentation. 2. Group B strep screen negative 3. Patient desires epidural in labor 4. Patient plans to breast-feed 5. Patient has had her Tdap, is rubella immune. 6. Has a remote history of genital HSV. She has been on acyclovir prophylactically at 400 mg p.o. 3 times daily since 36 weeks gestation. Has no history of any lesions at this time nor does she have any findings of lesions on the genital area. 7. Patient had Covid April 2021. 8. Risk factors for the include: Advanced maternal age of 35 years, remote history of genital HSVon prophylaxis since 36 weeks with acyclovir, history of delivery. Plan: 1. Anticipate . 2. As patient has progressed relatively well. Will monitor. If at any point Pitocin augmentation is necessary and will provide. 3. Epidural as needed for analgesia per patient desire 4. Laboratory testing consist of COVID-19, CBC, RPR per protocol 5. Support breast-feeding plan.
[2021-07-12] MEDS ORDERED: ePHEDrine 50 MG/ML SDV IVPUSH PRN (23:00)
[2021-07-12] MEDS ORDERED: Bupivacaine/fentaNYL/NS 100 ML Bag EPIDUR PRN (23:00)
[2021-07-12] MEDS ORDERED: fentaNYL 100 MCG/2 ML SDV EPIDUR PRN (23:00)
[2021-07-12] MEDS ORDERED: diphenhydrAMINE 50 MG/ML SDV IVPUSH PRN (23:00)
--- NOTE | 2021-07-12 23:50 | PCM.PREANE ---
Preanesthetic Assessment - Procedure Proposed Procedure: Continuous labor epidural - Anesthesia/Transfusion/Family Hx Anesthesia History: Prior Anesthesia Without Reaction Transfusion History: No Prior Transfusion(s) - Review of Systems General: No Symptoms Pulmonary: No Symptoms Cardiovascular: No Symptoms Gastrointestinal: No Symptoms Neurological: No Symptoms Other: Reports: None - Physical Assessment Height: 1.73 m Weight: 71.214 kg ASA Class: 2 Mental Status: Alert & Oriented x3 Airway Class: Mallampati = 2 Dentition: Reports: Normal Dentition Thyro-Mental Finger Breadths: 3 Mouth Opening Finger Breadths: 3 ROM/Head Extension: Full Lungs: Clear to Auscultation, Normal Respiratory Effort Cardiovascular: Regular Rate, Regular Rhythm - Lab Values: Laboratory Last Values WBC 14.87 K/mm3 (3.98-10.04) H 07/12/21 21:50 RBC 4.09 M/mm3 (3.98-5.22) 07/12/21 21:50 Hgb 12.6 gm/dl (11.2-15.7) 07/12/21 21:50 Hct 37.5 % (34.1-44.9) 07/12/21 21:50 MCV 91.7 fl (79.4-94.8) 07/12/21 21:50 MCH 30.8 pg (25.6-32.2) 07/12/21 21:50 MCHC 33.6 g/dl (32.2-35.5) 07/12/21 21:50 RDW Std Deviation 43.7 fL (36.4-46.3) 07/12/21 21:50 Plt Count 286 K/mm3 (182-369) 07/12/21 21:50 MPV 9.4 fl (9.4-12.3) 07/12/21 21:50 Neut % (Auto) 80.4 % (34.0-71.1) H 07/12/21 21:50 Lymph % (Auto) 13.9 % (19.3-51.7) L 07/12/21 21:50 [place] % (Auto) 5.2 % (4.7-12.5) 07/12/21 21:50 Eos % (Auto) 0.2 (0.7-5.8) L 07/12/21 21:50 Baso % (Auto) 0.1 % (0.1-1.2) 07/12/21 21:50 Neut # (Auto) 11.94 K/mm3 (1.56-6.13) H 07/12/21 21:50 Lymph # (Auto) 2.07 K/mm3 (1.18-3.74) 07/12/21 21:50 [place] # (Auto) 0.78 K/mm3 (0.24-0.36) H 07/12/21 21:50 Eos # (Auto) 0.03 K/mm3 (0.04-0.36) L 07/12/21 21:50 Baso # (Auto) 0.02 K/mm3 (0.01-0.08) 07/12/21 21:50 Blood Type AB POSITIVE 07/12/21 21:50 Gel Antibody Screen Negative 07/12/21 21:50 - Allergies Allergies/Adverse Reactions: Allergies Allergy/AdvReac Type Severity Reaction Status Date / Time Sulfa (Sulfonamide AdvReac Joint Pain Verified 07/12/21 19:27 Antibiotics) - Acknowledgements Anesthesia Type Planned: Epidural Pt an Appropriate Candidate for the Planned Anesthesia: Yes Alternatives and Risks of Anesthesia Discussed w Pt/Guardian: Yes Pt/Guardian Understands and Agrees with Anesthesia Plan: Yes PreAnesthesia Questionnaire HEENT History: Reports: None Cardiovascular History: Reports: None Other Cardiovascular History: anemic Respiratory History: Reports: None Other Respiratory History: current smoker Gastrointestinal History: Reports: Cholelithiasis Genitourinary History: Reports: UTI, Recurrent, Other (See Below) Other Genitourinary History: Recurrent UTIs, kidney infections, possible stones- was directed to see urology after delivery per pt. COATER SLATE History: Reports: Spontaneous Other OB/BYN History: laparoscopic procedure for endometriosis Musculoskeletal History: Reports: Back Pain, Chronic Other Musculoskeletal History: L5 degenerative disk Psychiatric History: Reports: Addiction, Anxiety, Suicide Attempt Other Psychiatric History: increased stress Endocrine/Metabolic History: Reports: None Hematologic History: Reports: Anemia, Iron Deficiency Immunologic History: Reports: None Oncologic (Cancer) History: Reports: None Dermatologic History: Reports: None - Infectious Disease History Infectious Disease History: Reports: Chicken Pox - Past Surgical History Head Surgeries/Procedures: Reports: None GI Surgical History: Reports: Cholecystectomy, Other (See Below) Female Surgical History: Reports: Other (See Below) Other Female Surgeries/Procedures: laproscopic endometrial surgeries, explaoratory. Neurological Surgical History: Reports: Lumbar Spine, Spinal Fusion (L4-5) Musculoskeletal Surgical History: Reports: Carpal Tunnel Other Musculoskeletal Surgeries/Procedures:: spinal fusion - HOME MEDS Home Medications: Home Meds Ondansetron [Zofran ODT] 1 tab PO Q6H PRN 01/26/21 [History] Ondansetron [Zofran ODT] 4 mg PO Q6H PRN #20 tab.dis 01/26/21 [Rx] Potassium Chloride [Klor-Con 10] 10 meq PO BID #6 tab.er 01/26/21 [Rx] No122/Iron/Folic Acid [ Multi Tablet] 1 tab PO DAILY 01/26/21 [History] cephALEXin [Keflex] 500 mg PO Q8H #15 cap 01/26/21 [Rx] - CURRENT (IN HOUSE) MEDS Current Meds: Current Medications Diphenhydramine HCl (Diphenhydramine 50 Mg/Ml Sdv) 25 mg IVPUSH Q6H PRN PRN Reason: pruritis Ephedrine Sulfate (Ephedrine 50 Mg/Ml Sdv) 5 mg IVPUSH ASDIRECTED PRN PRN Reason: Hypotension Fentanyl (Fentanyl 100 Mcg/2 Ml Sdv) 100 mcg EPIDUR Q3H PRN PRN Reason: Pain Last Admin: 07/12/21 23:11 Dose: 100 mcg Documented by: Fentanyl/Bupivacaine HCl (Bupivacaine/Fentanyl/Ns 100 Ml Bag) 100 ml EPIDUR ASDIRECTED PRN PRN Reason: Pain Last Admin: 07/12/21 23:11 Dose: 100 ml Documented by: Lactated Ringer's (Ringers, Lactated) 1,000 mls @ 100 mls/hr IV ASDIRECTED JARVIS Last Admin: 07/12/21 22:52 Dose: 100 mls/hr Documented by: Oxytocin/Lactated Ringer's (Pitocin In Lr 10 Units/1,000 Ml) 10 unit in 1,000 mls @ 12 mls/hr IV TITRATE JARVIS; Protocol Oxytocin/Lactated Ringer's (Pitocin In Lr 10 Units/1,000 Ml) 10 unit in 1,000 mls @ 100 mls/hr IV .CONTINUOUS JARVIS Nalbuphine HCl (Nalbuphine 10 Mg/1 Ml Vial) 10 mg IVPUSH Q2H PRN PRN Reason: Pain Sodium Chloride (Sodium Chloride 0.9% 10 Ml Syringe) 10 ml FLUSH ASDIRECTED PRN PRN Reason: Keep Vein Open
[2021-07-13] MEDS ORDERED: Lidocaine 1.5% with EPINEPHrine 1:200,000 5 ML Amp ONE
[2021-07-13] MEDS ORDERED: Benzocaine/Menthol 20%-0.5% Spray 78 GM Cannister TOP PRN ×2 (05:46→07:20)
[2021-07-13] MEDS ORDERED: Witch Hazel Medicated Pads 40/Jar TOP PRN ×2 (05:46→07:20)
[2021-07-13] MEDS ORDERED: Acetaminophen 325 MG Tab PO PRN ×2 (05:46→07:20)
[2021-07-13] MEDS ORDERED: Ibuprofen 600 MG Tab PO PRN (05:46)
[2021-07-13] MEDS ORDERED: Docusate Sodium 100 MG Cap PO PRN ×2 (05:46→07:20)
--- NOTE | 2021-07-13 05:55 | PCM.SN.2 ---
- Free Text/Narrative Note: Delivery note: Stage I: Kaycee is a 35-year-old 5 now para 3114 female presently at 37-6/7 weeks gestational age with an TALAT of 07/27/2021 admitted for active labor and progressive cervical dilation to 4 cm, 85% effaced, -3 station, anterior, soft, cephalic presentation. Patient underwent Pitocin induction of labor followed by artificial rupture membranes after she had achieved near complete cervical dilation. heart tones remained reassuring throughout the course. Patient had an epidural for labor analgesia. Achieved complete cervical dilation by approximately 0500 hrs. on 07/13/2021. Stage II: Kaycee delivered a viable, de la paz, male infant with Apgars of 8 and 9, weight of 2750 g (6 pounds 1 ounce) and Apgars of 8 and 9 in a left occiput anterior position. Delivery was at 0513 hrs. Midline perineal episiotomy was performed. This to facilitate the baby's delivery because of low heart rate. External restitution was to the right. With gentle downward and upward traction shoulders were delivered without problems. The baby was completely delivered and was placed on mom's abdomen. Baby was dried with a warm blanket. Nose and mouth were bulb suction. Pitocin infusion was increased to 500 cc an hour to facilitate increase in uterine tone and decrease likelihood of bleeding. No cord was allowed to pulsate for approximately 3 minutes and was clamped x2 and cut. Umbilical cord had 3 vessels. Cord blood was obtained. The midline episiotomy was repaired using 3-0 Monocryl suture in a routine fashion. Epidural analgesia was used for perineal episiotomy repair anesthesia. Patient tolerated this well. Stage III: The placenta delivered in a M[place]artney fashion at 0534 hrs. The shape of the placenta was somewhat bilobed. Per patient desire it was discarded. It appeared intact and complete. Estimated blood loss was 200 cc. Patient plans to breast-feed.
[2021-07-13] MEDS: Ibuprofen 600 MG Tab PO PRN ×3 (09:56→20:11)
[2021-07-13] MEDS: Prenatal Multivitamin with Calcium/Folic Acid/Iron Tab PO SCH (09:56)
[2021-07-14] MEDS: Ibuprofen 600 MG Tab PO PRN ×2 (04:30→20:09)
--- NOTE | 2021-07-14 11:45 | PCM.DCSUM1 ---
Discharge Summary - Hospital Course Free Text/Narrative:: Stage I: Kaycee is a 35-year-old 5 now para 3114 female presently at 37-6/7 weeks gestational age with an TALAT of 07/27/2021 admitted for active labor and progressive cervical dilation to 4 cm, 85% effaced, -3 station, anterior, soft, cephalic presentation. Patient underwent Pitocin induction of labor followed by artificial rupture membranes after she had achieved near complete cervical dilation. heart tones remained reassuring throughout the course. Patient had an epidural for labor analgesia. Achieved complete cervical dilation by approximately 0500 hrs. on 07/13/2021. Stage II: Kaycee delivered a viable, de la paz, male infant with Apgars of 8 and 9, weight of 2750 g (6 pounds 1 ounce) and Apgars of 8 and 9 in a left occiput anterior position. Delivery was at 0513 hrs. Midline perineal episiotomy was performed. This to facilitate the baby's delivery because of low heart rate. External restitution was to the right. With gentle downward and upward traction shoulders were delivered without problems. The baby was completely delivered and was placed on mom's abdomen. Baby was dried with a warm blanket. Nose and mouth were bulb suction. Pitocin infusion was increased to 500 cc an hour to facilitate increase in uterine tone and decrease likelihood of bleeding. No cord was allowed to pulsate for approximately 3 minutes and was clamped x2 and cut. Umbilical cord had 3 vessels. Cord blood was obtained. The midline episiotomy was repaired using 3-0 Monocryl suture in a routine fashion. Epidural analgesia was used for perineal episiotomy repair anesthesia. Patient tolerated this well. Stage III: The placenta delivered in a M[place]artney fashion at 0534 hrs. The shape of the placenta was somewhat bilobed. Per patient desire it was discarded. It appeared intact and complete. Estimated blood loss was 200 cc. Patient plans to breast-feed. patient has done well. She has had normal vital signs. She is afebrile. She is nursing without concerns, voiding without problems, has minimal lochia and is ambulating well. She is desiring discharge home. Condition: Good. Diagnosis: Stroke: No - Discharge Data Discharge Date: 07/14/21 Discharge Disposition: Home, Self-Care 01 Condition: Good - Referral to Home Health Primary Care Physician: Chacorta Adhikari MD - Discharge Diagnosis/Problem(s) (1) Active labor SNOMED Code(s): 040305095 ICD Code: [id number] - Status: Acute Current Visit: Yes (2) 37 weeks gestation of SNOMED Code(s): 88332010 ICD Code: Z3A.37 - 37 WEEKS GESTATION OF Status: Acute Current Visit: No - Patient Instructions Diet: Regular Diet as Tolerated (Nursing diet with increased calories and calcium is recommended) Activity: As Tolerated (No intercourse or tampons until bleeding resolves) Driving: May Drive Today Showering/Bathing: May Shower Notify Provider of: Fever, Increased Pain, Swelling and Redness, Nausea and/or Vomiting - Discharge Plan Home Medications: Home Meds No122/Iron/Folic Acid [ Multi Tablet] 1 tab PO DAILY 01/26/21 [History] Acetaminophen [Tylenol] 650 mg PO Q4H PRN tablet 07/14/21 [Rx] Ibuprofen [Motrin] 600 mg PO Q4H PRN tablet 07/14/21 [Rx] Referrals: Chacorta Adhikari MD [Primary Care Provider] - (Return to [facility]2-4 weeks.) - Discharge Summary/Plan Comment DC Time >30 min.: No Total # of Minutes for Discharge Time: 10 minutes Discharge Summary/Plan Comment: Discharge instructions: 1. Discharge home 2. Diet, activity and follow-up discussed with patient. Recommend nursing diet with increased calories and calcium. 3. Precautions given concern increased pain, bleeding, temperature, signs/symptoms of DVT/PE. 4. Medications per home medication was printed, discussed with and given to the patient. 5. Return to clinic-Dr. Adhikari[facility] in 2 weeks. Diagnosis: Term -delivered Condition: Good - Patient Data Vitals - Most Recent: Last Vital Signs Temp 36.6 C 07/14/21 08:05 Pulse 61 07/14/21 08:05 Resp 16 07/14/21 08:05 BP 105/55 L 07/14/21 08:05 Pulse Ox 98 07/14/21 08:05 Weight - Most Recent: 71.214 kg I&O - Last 24 hours: Intake & Output 07/13/21 07/14/21 07/14/21 22:59 06:59 14:59 Intake Total 240 120 Balance 240 120 Lab Results - Last 24 hrs: Laboratory Results - last 24 hr 07/12/21 Range/Units 21:50 RPR Non-reactive (NONREACTIVE) Med Orders - Current: Current Medications Acetaminophen (Acetaminophen 325 Mg Tab) 650 mg PO Q4H PRN PRN Reason: mild pain or fever Benzocaine/Menthol (Benzocaine/Menthol 20%-0.5% [place] 78 Gm Cannister) 0 gm TOP ASDIRECTED PRN PRN Reason: Perineal Comfort Measure Docusate Sodium (Docusate Sodium 100 Mg Cap) 100 mg PO BID PRN PRN Reason: Constipation Ibuprofen (Ibuprofen 600 Mg Tab) 600 mg PO Q4H PRN PRN Reason: Mild pain or fever Last Admin: 07/14/21 04:30 Dose: 600 mg Documented by: Prenat Multivit/[place]/Iron/Folic Ac ( Multivitamin With Calcium/Folic Acid/Iron Tab) 1 each PO DAILY JARVIS Last Admin: 07/13/21 09:56 Dose: 1 each Documented by: Thang [place] (Thang [place] Medicated Pads 40/Jar) 1 pad TOP ASDIRECTED PRN PRN Reason: Perineal Comfort Measure Last Admin: 07/13/21 09:56 Dose: 1 tub Documented by: Discontinued Medications Acetaminophen (Acetaminophen 325 Mg Tab) 650 mg PO Q4H PRN PRN Reason: mild pain or fever Benzocaine/Menthol (Benzocaine/Menthol 20%-0.5% [place] 78 Gm Cannister) 0 gm TOP ASDIRECTED PRN PRN Reason: Perineal Comfort Measure Diphenhydramine HCl (Diphenhydramine 50 Mg/Ml Sdv) 25 mg IVPUSH Q6H PRN PRN Reason: pruritis Docusate Sodium (Docusate Sodium 100 Mg Cap) 100 mg PO BID PRN PRN Reason: Constipation Ephedrine Sulfate (Ephedrine 50 Mg/Ml Sdv) 5 mg IVPUSH ASDIRECTED PRN PRN Reason: Hypotension Fentanyl (Fentanyl 100 Mcg/2 Ml Sdv) 100 mcg EPIDUR Q3H PRN PRN Reason: Pain Last Admin: 07/12/21 23:11 Dose: 100 mcg Documented by: Fentanyl/Bupivacaine HCl (Bupivacaine/Fentanyl/Ns 100 Ml Bag) 100 ml EPIDUR ASDIRECTED PRN PRN Reason: Pain Last Admin: 07/12/21 23:11 Dose: 100 ml Documented by: Lactated Ringer's (Ringers, Lactated) 1,000 mls @ 100 mls/hr IV ASDIRECTED JARVIS Last Admin: 07/12/21 22:52 Dose: 100 mls/hr Documented by: Oxytocin/Lactated Ringer's (Pitocin In Lr 10 Units/1,000 Ml) 10 unit in 1,000 mls @ 12 mls/hr IV TITRATE JARVIS; Protocol Last Titration: 07/13/21 02:28 Dose: 4 munits/min, 24 mls/hr Documented by: Oxytocin/Lactated Ringer's (Pitocin In Lr 10 Units/1,000 Ml) 10 unit in 1,000 mls @ 100 mls/hr IV .CONTINUOUS JARVIS Ibuprofen (Ibuprofen 600 Mg Tab) 600 mg PO Q4H PRN PRN Reason: Mild pain or fever Lidocaine/Epinephrine (Lidocaine 1.5% With Epinephrine 1:200,000 5 Ml Amp) [address] ONE Stop: 07/13/21 00:01 Nalbuphine HCl (Nalbuphine 10 Mg/1 Ml Vial) 10 mg IVPUSH Q2H PRN PRN Reason: Pain Sodium Chloride (Sodium Chloride 0.9% 10 Ml Syringe) 10 ml FLUSH ASDIRECTED PRN PRN Reason: Keep Vein Open Witch Cassandra (Witch Cassandra Medicated Pads 40/Jar) 1 pad TOP ASDIRECTED PRN PRN Reason: Perineal Comfort Measure
--- NOTE | 2021-07-14 11:51 | PCM48HPAN ---
Post Anesthesia Note - EVALUATION WITHIN 48HRS OF ANESTHETIC Vital Signs in Normal Range: Yes Patient Participated in Evaluation: No (per RN) Respiratory Function Stable: Yes Airway Patent: Yes Cardiovascular Function Stable: Yes Hydration Status Stable: Yes Pain Control Satisfactory: Yes Nausea and Vomiting Control Satisfactory: Yes Mental Status Recovered: Yes Vital Signs: Last Vital Signs Temp 36.6 C 07/14/21 08:05 Pulse 61 07/14/21 08:05 Resp 16 07/14/21 08:05 BP 105/55 L 07/14/21 08:05 Pulse Ox 98 07/14/21 08:05
[2021-07-14] MEDS: Prenatal Multivitamin with Calcium/Folic Acid/Iron Tab PO SCH (21:28)
--- NOTE | 2021-07-15 07:46 | PCM.DCSUM1 ---
Discharge Summary - Hospital Course Diagnosis: Stroke: No - Discharge Data Discharge Date: 07/15/21 Discharge Disposition: Home, Self-Care 01 Condition: Good - Referral to Home Health Primary Care Physician: Chacorta Adhikari MD - Patient Summary/Data Hospital Course: Was set for discharge yesterday but cancelled for reasons. No changes t o yesterday's discharge summary. - Patient Instructions Diet: Regular Diet as Tolerated (Nursing diet with increased calories and calcium is recommended) Activity: As Tolerated (No intercourse or tampons until bleeding resolves) Driving: May Drive Today Showering/Bathing: May Shower Notify Provider of: Fever, Increased Pain, Swelling and Redness, Nausea and/or Vomiting - Discharge Plan *PRESCRIPTION DRUG MONITORING PROGRAM REVIEWED*: No *COPY OF PRESCRIPTION DRUG MONITORING REPORT IN PATIENT RM: No Home Medications: Home Meds No122/Iron/Folic Acid [ Multi Tablet] 1 tab PO DAILY 01/26/21 [History] Acetaminophen [Tylenol] 650 mg PO Q4H PRN tablet 07/14/21 [Rx] Ibuprofen [Motrin] 600 mg PO Q4H PRN tablet 07/14/21 [Rx] Patient Handouts: Care After Vaginal Delivery Referrals: Chacorta Adhikari MD [Primary Care Provider] - (Return to [facility]2-4 weeks.) - Discharge Summary/Plan Comment DC Time >30 min.: No Total # of Minutes for Discharge Time: 15 - Patient Data Vitals - Most Recent: Last Vital Signs Temp 36.5 C 07/15/21 03:11 Pulse 57 L 07/15/21 03:11 Resp 16 07/15/21 03:11 BP 107/40 L 07/15/21 03:11 Pulse Ox 98 07/15/21 03:11 Weight - Most Recent: 71.214 kg Med Orders - Current: Current Medications Acetaminophen (Acetaminophen 325 Mg Tab) 650 mg PO Q4H PRN PRN Reason: mild pain or fever Last Admin: 07/14/21 20:10 Dose: 650 mg Documented by: Benzocaine/Menthol (Benzocaine/Menthol 20%-0.5% [place] 78 Gm Cannister) 0 gm TOP ASDIRECTED PRN PRN Reason: Perineal Comfort Measure Docusate Sodium (Docusate Sodium 100 Mg Cap) 100 mg PO BID PRN PRN Reason: Constipation Ibuprofen (Ibuprofen 600 Mg Tab) 600 mg PO Q4H PRN PRN Reason: Mild pain or fever Last Admin: 07/14/21 20:09 Dose: 600 mg Documented by: Prenat Multivit/[place]/Iron/Folic Ac ( Multivitamin With Calcium/Folic Acid/Iron Tab) 1 each PO DAILY JARVIS Last Admin: 07/14/21 21:28 Dose: Not Given Documented by: Thang [place] (Thang [place] Medicated Pads 40/Jar) 1 pad TOP ASDIRECTED PRN PRN Reason: Perineal Comfort Measure Last Admin: 07/13/21 09:56 Dose: 1 tub Documented by: Discontinued Medications Acetaminophen (Acetaminophen 325 Mg Tab) 650 mg PO Q4H PRN PRN Reason: mild pain or fever Benzocaine/Menthol (Benzocaine/Menthol 20%-0.5% [place] 78 Gm Cannister) 0 gm TOP ASDIRECTED PRN PRN Reason: Perineal Comfort Measure Diphenhydramine HCl (Diphenhydramine 50 Mg/Ml Sdv) 25 mg IVPUSH Q6H PRN PRN Reason: pruritis Docusate Sodium (Docusate Sodium 100 Mg Cap) 100 mg PO BID PRN PRN Reason: Constipation Ephedrine Sulfate (Ephedrine 50 Mg/Ml Sdv) 5 mg IVPUSH ASDIRECTED PRN PRN Reason: Hypotension Fentanyl (Fentanyl 100 Mcg/2 Ml Sdv) 100 mcg EPIDUR Q3H PRN PRN Reason: Pain Last Admin: 07/12/21 23:11 Dose: 100 mcg Documented by: Fentanyl/Bupivacaine HCl (Bupivacaine/Fentanyl/Ns 100 Ml Bag) 100 ml EPIDUR ASDIRECTED PRN PRN Reason: Pain Last Admin: 07/12/21 23:11 Dose: 100 ml Documented by: Lactated Ringer's (Ringers, Lactated) 1,000 mls @ 100 mls/hr IV ASDIRECTED JARVIS Last Admin: 07/12/21 22:52 Dose: 100 mls/hr Documented by: Oxytocin/Lactated Ringer's (Pitocin In Lr 10 Units/1,000 Ml) 10 unit in 1,000 mls @ 12 mls/hr IV TITRATE JARVIS; Protocol Last Titration: 07/13/21 02:28 Dose: 4 munits/min, 24 mls/hr Documented by: Oxytocin/Lactated Ringer's (Pitocin In Lr 10 Units/1,000 Ml) 10 unit in 1,000 mls @ 100 mls/hr IV .CONTINUOUS JARVIS Ibuprofen (Ibuprofen 600 Mg Tab) 600 mg PO Q4H PRN PRN Reason: Mild pain or fever Lidocaine/Epinephrine (Lidocaine 1.5% With Epinephrine 1:200,000 5 Ml Amp) 5 ml .ROUTE .[facility] ONE Stop: 07/13/21 00:01 Nalbuphine HCl (Nalbuphine 10 Mg/1 Ml Vial) 10 mg IVPUSH Q2H PRN PRN Reason: Pain Sodium Chloride (Sodium Chloride 0.9% 10 Ml Syringe) 10 ml FLUSH ASDIRECTED PRN PRN Reason: Keep Vein Open Witch Cassandra (Witch Cassandra Medicated Pads 40/Jar) 1 pad TOP ASDIRECTED PRN PRN Reason: Perineal Comfort Measure
[2021-07-15 11:01] VITALS: BP 97/58; PULSE 69
== END 2021-07-15 10:45 | disposition home or self-care (01) | DRG 807 ==
LOC: JD.OBCHECK 19:14 → JD.OB 19:18 → JD.OBCHECK 21:39 → JD.OB 21:40 → OBSVTOIN 07-13 05:13 → JD.OB 07-13 05:14
PROVIDERS: ADMIT Obstetrics & Gynecology; ATTEND Obstetrics & Gynecology
PROC: 10E0XZZ Delivery of Products of Conception, External Approach (ICD-10-PCS; principal; 2021-07-13)
PROC: 10907ZC Drainage of Amniotic Fluid, Therapeutic from Products of Conception, Via Natural or Artificial Opening (ICD-10-PCS; 2021-07-13)
PROC: 3E033VJ Introduction of Other Hormone into Peripheral Vein, Percutaneous Approach (ICD-10-PCS; 2021-07-13)
PROC: 3E0R3BZ Introduction of Anesthetic Agent into Spinal Canal, Percutaneous Approach (ICD-10-PCS; 2021-07-13)
PROC: 0W8NXZZ Division of Female Perineum, External Approach (ICD-10-PCS; 2021-07-13)
DX: O76 Abnormality in fetal heart rate and rhythm complicating labor and delivery (principal); Z37.0 Single live birth; Z3A.37 37 weeks gestation of pregnancy; O99.334 Smoking (tobacco) complicating childbirth; F17.210 Nicotine dependence, cigarettes, uncomplicated
CPT/HCPCS: 01967; 36415; 51702; 59025; 59409; 85025; 86592; 86850; 86900; 86901; A9270-GY; J2590; J3010; J7120